=== PATIENT | female | born 1965 | race Caucasian/White ===

== ENCOUNTER → 2018-12-05 10:03 | Outpatient (CLI) | payer OTHER, SELFPAY ==
--- NOTE | 2018-12-05 10:16 | MRI_ITS ---
STUDY: BILATERAL BREAST MR WITHOUT AND WITH CONTRAST REASON FOR EXAM: Female, 53 years old. Coarse calcifications on mammogram. Positive family history of breast cancer. TECHNIQUE: Multi-sequence multi-echo imaging of both breasts was performed with a dedicated breast coil. T1-weighted and T2-weighted images were performed before the administration of contrast. T1-weighted images were also performed after the administration of 6 mL of Gadavist intravenously without complications. COMPARISON: Screening mammogram dated October 22, 2018 and right diagnostic mammogram dated October 22, 2018. FINDINGS: RIGHT BREAST: The breast tissue is heterogeneously dense with minimal background enhancement. There are no abnormal enhancing masses or areas of non-mass enhancement in the right breast. LEFT BREAST: The breast tissue is heterogeneously dense with minimal background enhancement. There are no abnormal enhancing masses or areas of non-mass enhancement in the left breast. There are no enlarged or abnormal lymph nodes. There is no abnormality in the visualized regions of the chest or liver. MRI/Breast Bilateral W/O and W IMPRESSION: No significant abnormality identified in the breast MRI without and with with contrast. CATEGORY: BIRADS Category 2: Benign. A letter regarding these results will be sent to the patient by the facility within 30 days. Electronically Signed: Dino Mohamud MD at 17:57 EST , Service support ,
== END ==
PROVIDERS: Family Provider Family Medicine; PCP Family Medicine; Referring Provider Obstetrics & Gynecology; Visit Provider Obstetrics & Gynecology
DX: R92.2 Inconclusive mammogram (principal)
CPT/HCPCS: 77049; A9585; A4216; C8908

== ENCOUNTER → 2018-12-19 11:59 | Outpatient (CLI) | payer OTHER, SELFPAY ==
[2018-12-19 14:55] LABS: Hematocrit 42.5 % (37-47); Mean Corp Hgb Conc 32.9 g/gl (32-36); Mean Platelet Vol. 10.5 fl (6.2-12.0); Platelet Count 223 K/mm3 (150-450); RBC Distribution Width CV 12.4 % (11.6-14.6); RBC Distribution Width SD 44.4 fl (35.1-43.9); Red Blood Count 4.38 M/mm3 (4.2-5.4); White Blood Count 5.8 K/mm3 (4.4-11.0)
[2018-12-19 14:59] LABS: Scan Indicated on CBC? Y/N NO
[2018-12-19 15:12] LABS: hCG Titer Quant., Serum 7 mIU/mL (<9 non-preg)
[2018-12-19 15:14] LABS: Estradiol 17.2 pg/mL; Free T3 2.4 pg/mL (2.18-3.98); Progesterone Level 0.34 ng/mL (See Comment); T4 Free Direct 1.09 ng/dL (0.76-1.46)
[2018-12-19 15:19] LABS: Hemoglobin A1c 5.3 % (4.2-6.3)
[2018-12-23 14:45] LABS: HPV Reflexed? NOT INDICATED
== END ==
PROVIDERS: Visit Provider Obstetrics & Gynecology
DX: Z12.4 Encounter for screening for malignant neoplasm of cervix (principal); N92.6 Irregular menstruation, unspecified
CPT/HCPCS: 36415; 82670; 83036; 84144; 84403; 84439; 84443; 84481; 84702; 85027; 88175; G0145

== ENCOUNTER → 2019-01-09 11:11 | Outpatient (CLI) | payer OTHER, SELFPAY ==
[2019-01-09 14:01] LABS: Follicle Stimulating Hormone 62.2 mIU/mL
== END ==
PROVIDERS: Visit Provider Obstetrics & Gynecology
DX: N93.9 Abnormal uterine and vaginal bleeding, unspecified (principal)
CPT/HCPCS: 36415; 83001

== ENCOUNTER → 2019-04-03 10:19 | Outpatient (CLI) | payer OTHER, SELFPAY ==
[2019-04-03 14:03] LABS: Estradiol 34.4 pg/mL; Follicle Stimulating Hormone 81.2 mIU/mL
[2019-04-03 14:08] LABS: Progesterone Level 1.36 ng/mL (See Comment)
== END ==
PROVIDERS: Visit Provider Obstetrics & Gynecology
DX: N92.5 Other specified irregular menstruation (principal); D25.1 Intramural leiomyoma of uterus
CPT/HCPCS: 36415; 82670; 83001; 84144

== ENCOUNTER 2019-04-29 10:49 | Day surgery (SDC) | payer OTHER, SELFPAY ==
[2019-04-29] VITALS (10 sets, daily range): BP systolic 112–146; BP diastolic 69–86; PULSE 53–68; RESP 16–18; TEMP 36.1–36.8; O2SAT 95–100; BMI 21.2
[2019-04-29 11:15] LABS: Internal QC Validated? YES +Cl - CLEAR BKGD; Pregnancy, Urine Negative Negative
[2019-04-29 11:20] LABS: Hematocrit 43.5 % (37-47); Mean Corp Hgb Conc 34.5 g/dL (32-36); Mean Corpuscular Hgb 33.8 pg (27.0-32.0); Mean Platelet Vol. 9.4 fl (6.2-12.0); Platelet Count 254 K/mm3 (150-450); RBC Distribution Width CV 12.6 % (11.6-14.6); RBC Distribution Width SD 45.3 fl (35.1-43.9); Red Blood Count 4.44 M/mm3 (4.2-5.4); White Blood Count 6.2 K/mm3 (4.4-11.0)
[2019-04-29 11:37] LABS: Prothrombin Time (Protime)PT. 13.1 SECONDS (11.7-14.9)
[2019-04-29 11:38] LABS: Partial Thromboplast Time 29.4 Seconds (24.1-36.2)
--- NOTE | 2019-04-29 12:00 | PCM.HP.OB ---
- Problem List (1) Thickened endometrium Status: Acute (2) Postmenopausal bleeding Status: Acute History Date of Admission: 04/29/19 History of this : This is a 53 year-old, G [], P [], at weeks gestational age. Allergies No Known Allergies Allergy (Verified 04/22/19 11:57) Home Medications: Home Medications Amlodipine Besylate [Norvasc] 10 mg PO DAILY 04/22/19 L.acidoph,Paracasei, B.lactis [Probiotic] 1 ea PO DAILY 04/22/19 Levothyroxine [Synthroid] 50 mcg PO DAILY 04/22/19 Smoking Status: Current every day smoker History Past Pregnancies: Past Pregnancies Delivery Date Name GA/Weeks Outcome Route Weight Infant Gender Labor Length Anesthesia Delivery Location Provider FOB Review of Systems Constitutional: Denies: Chills, Fever, Weight Change HEENT: Denies: Difficulty Hearing, Difficulty Swallowing, Nasal bleeding, Nasal Congestion, Sore Throat Cardiovascular: Denies: Chest Pain, Palpitations Respiratory: Denies: Shortness of Breath, Wheezing Gastrointestinal: Denies: Constipation, Diarrhea, Nausea, Vomiting Genitourinary: Denies: Dysuria, Frequency, Hematuria, Incontinence, Urgency Musculoskeletal: Denies: Joint Pain, Muscle pain Skin: Denies: Lesions, Skin Changes Neurological: Denies: Focal weakness, Numbness Psychiatric: Denies: Anxiety, Depression Endocrine: Denies: Heat/ Cold Intolerance Hematologic/ Lymphatic: Denies: Easy Bleeding Physical Exam Vitals: Vital Signs Temp Pulse Resp BP Pulse Ox 98.3 F 68 16 126/69 H 100 04/29/19 11:13 04/29/19 11:13 04/29/19 11:13 04/29/19 11:13 04/29/19 11:13 General: Alert, Oriented x3, No apparent distress HEENT: Atraumatic, Normocephalic. 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 The risk of bleeding, infection and other organ damage including bladder, bowel and uterine perforation reviewed, accepted and consented.
--- NOTE | 2019-04-29 12:30 | EMB_PTH ---
PATIENT: JENNIFER MALIK LOC: [facility] – [place] U#:[id number] AGE/SX: 53/F ROOM: RE04/29/[address]: Dr. Gertrude Chung MD : 1965 BED: DIS: 04/29/2019 SPEC #: [id number] RECD: 04/30/19 07:54 STATUS: MIGUELITO JADEN #: [id number] ANN: 04/29/19 12:[address]: Gertrude hCung DEPT: SURGICAL PATHOLOGY RECD BY: Kevin Redding ENTERED: 04/30/19 11:04 SP TYPE: ENDOShamika BX/C PANCHITO DR: Juany Marcos PA-C Tissues: Endometrium, NOS Procedures: Surgery Specimen Level IV HEADER OPERATION: Hysteroscopy, dilation and curettage PRE-OP DIAGNOSIS: Thickened endometrium, postmenopausal bleeding TISSUE SUBMITTED: Endometrial curettings MICROSCOPIC DIAGNOSIS Endometrial curettings: Proliferative endometrium. Fragments of benign ecto- and endocervical mucosa with chronic inflammation. SJ:juanito 05/01/19 MICROSCOPIC DESCRIPTION Slides are reviewed. GROSS DESCRIPTION Received in fixative is one container labeled with the patient's name and designated endometrial curettings. The specimen consists of multiple fragments of hemorrhagic soft tissue that in aggregate measure 3 x 2.5 x 0.3 cm. The entire specimen is submitted in one cassette. / ALEXIS:juanito 04/30/19 TC:5 CPT: 13578
--- NOTE | 2019-04-29 13:24 | PCM.OPRPT ---
Problem List (1) Thickened endometrium Status: Acute (2) Postmenopausal bleeding Status: Acute Report of Operation Date of Procedure: 04/29/19 Pre-Operative Diagnosis: Postmenopausal bleeding and thickened endometrium Post-Operative Diagnosis: Same Surgery/Procedure Performed:: D&C, hysteroscopy Description of Surgical Findings:: Uterus was sounded to approximately 9 cm in anteflexed position. Bilateral adnexal areas were benign upon pelvic exam under anesthesia Type of Anesthesia:: Local MAC Anesthesiologist: Beny Gee Special Medications: Cefotetan 2 g IV preop and 10 cc of 1% lidocaine directly to the cervix Specimen's removed: Endometrium Drains: None Estimated Blood Loss (mL): Minimal Fluids Replaced: Lactated Ringer Description of Procedure: Patient was brought to the operating room and n.p.o. status. She was placed on the operating room table and underwent a MAC anesthetic after appropriate monitoring had been placed. These note that timeout had occurred upon entry into the room as well as before procedure commenced. After appropriate anesthesia was administered patient placed in the dorsolithotomy position via the Georges stirrups. She was prepped and draped in the normal sterile fashion. Patient had straight cath of approximately 30 cc of clear urine. Weighted speculum was placed to the vaginal vault area and the anterior lip of the cervix was grasped elevated with a single-tooth tenaculum. Cc of 1% lidocaine was placed directly to the cervix and patient tolerated well. This was sounded to approximately 9 cm in anteflexed position. The the cervical os was then dilated to accommodate a 5 mm hysteroscope. A 5 mm hysteroscope was placed into the endometrial cavity the entire endometrium was examined and noted to have tissue throughout. The hysteroscope was removed and sharp curettage of the entire endometrial cavity occurred with collection of that endometrial tissue for evaluation for pathology G. The scope was placed back into the endometrial cavity and all tissue was noted to have been removed. Were then removed from the vagina. The sponge and instrument counts were correct x2. The patient was awakened in stable condition to be taken to the recovery room for discharge home later today. Grafts/Implants Used: None - Complications None - Admit VTE Documentation VTE Present on Admission: No VTE Mechan Device Prophylaxis: SCD's VTE Pharm Prophylaxis ordered?: No Reason prophylaxis not ordered:: Procedure Not Indicated
--- NOTE | 2019-04-29 13:28 | DCINST_ITS ---
Discharge Diet: No Restrictions - Increase water intake to a minimum of 100 cc/day x 3 days Discharge Activity: Return to Normal Activity, May Shower, May Take a Tub Bath - in 2 weeks. Return to work on:: 05/01/19 May shower in (days): 0 - Today May resume sexual activity in: 2 weeks Weight Bearing Status: Full weight bearing Lifting Restrictions: None Additional Activity Instructions:: Ambulate often the first week after surgery Call your doctor if your incision/area has: Sudden Increased Bleeding Call your doctor if you observe: Fever of 101 or Higher, Inability to urinate, Inability to have a bowel movement, Using more than one pad per hour Allergies/Adverse Reactions: Allergies No Known Allergies Allergy (Verified 04/22/19 11:57) Medications to take at Discharge Amlodipine Besylate [Norvasc] 10 mg PO DAILY 04/22/19 L.acidoph,Paracasei, B.lactis [Probiotic] 1 ea PO DAILY 04/22/19 Levothyroxine [Synthroid] 50 mcg PO DAILY 04/22/19 Primary Care Physician: Juany Marcos PA-C [Primary Care Provider] - Test Results: Test results from this visit will be discussed in further detail at your follow- up appointment, if applicable. Please Follow Up With: May 07
[2019-04-29] MEDS: Ketorolac 30 MG/ML Syringe IV (13:40)
== END 2019-04-29 15:20 | disposition home or self-care (01) ==
LOC: SDC 10:52 → AC 10:52
PROVIDERS: Family Provider Family Medicine; PCP Family Medicine; Referring Provider Obstetrics & Gynecology; Visit Provider Obstetrics & Gynecology
PROC: 0UDB8ZZ Extraction of Endometrium, Via Natural or Artificial Opening Endoscopic (ICD-10-PCS; CPT 58558; principal; 2019-04-29 12:20)
DX: N95.0 Postmenopausal bleeding (principal); R93.89 Abnormal findings on diagnostic imaging of other specified body structures; I10 Essential (primary) hypertension; E06.9 Thyroiditis, unspecified; F17.200 Nicotine dependence, unspecified, uncomplicated; Z98.51 Tubal ligation status; Z79.899 Other long term (current) drug therapy
CPT/HCPCS: 58558; 36415; 81025; 85027; 85610; 85730; 86850; 86900; 88305; J7120

== ENCOUNTER → 2019-09-29 13:48 | Outpatient (CLI) | payer OTHER, SELFPAY ==
[2019-04-29 11:13] VITALS: BMI 21.2
[2019-09-29 16:40] LABS: Progesterone Level 0.95 ng/mL (See Comment)
[2019-09-29 16:43] LABS: Estradiol 31.6 pg/mL
== END ==
PROVIDERS: Visit Provider Obstetrics & Gynecology
DX: N95.1 Menopausal and female climacteric states (principal)
CPT/HCPCS: 82670; 84144; 84403

== ENCOUNTER → 2020-02-25 17:27 | Outpatient (CLI) | payer OTHER, SELFPAY ==
[2019-04-29 11:13] VITALS: BMI 21.2
[2020-02-25 17:58] LABS: CRP, High Sensitivity Cardiac 2.43 mg/L; Estradiol 56.3 pg/mL
[2020-02-27 13:33] LABS: Sex Hormone-binding Globulin 82.9 nmol/L (17.3-125.0)
== END ==
PROVIDERS: Referring Provider Obstetrics & Gynecology; Visit Provider Obstetrics & Gynecology
DX: R68.82 Decreased libido (principal)
CPT/HCPCS: 82627; 82670; 84270; 84403; 86141; 82626

== ENCOUNTER → 2021-08-16 06:54 | Outpatient (CLI) | payer OTHER, SELFPAY ==
--- NOTE | 2021-08-16 07:50 | MRI_ITS ---
STUDY: BILATERAL BREAST MR WITHOUT AND WITH CONTRAST REASON FOR EXAM: Female, 55 years old. Mother with breast cancer in 60''s. Sister with breast cancer in 6th decade. Request says patient has breast cancer. TECHNIQUE: Multi-sequence multi-echo imaging of both breasts was performed with a dedicated breast coil. T1-weighted and T2-weighted images were performed before the administration of contrast. T1-weighted images were also performed after the administration of Dotarem 11mL without complications. COMPARISON: Mammograms dated 07/08/2021 and right breast ultrasound dated 07/08/2021. FINDINGS: RIGHT BREAST: The breast tissue is heterogeneously dense with minimal background enhancement. There are no abnormal enhancing masses or areas of non-mass enhancement in the right breast. LEFT BREAST: The breast tissue is heterogeneously dense with minimal background enhancement. There are no abnormal enhancing masses or areas of non-mass enhancement in the left breast. There are no enlarged or abnormal lymph nodes. There is no abnormality in the visualized regions of the chest or liver. MRI/Breast Bilateral W/O and W IMPRESSION: No abnormality on the breast MRI with contrast. CATEGORY: BIRADS Category 6: Known Biopsy-Proven Malignancy - Appropriate Action Should Be Taken. A letter regarding these results will be sent to the patient by the facility within 30 days. Electronically Signed: Dino Mohamud MD at 11:02 EST , Service support ,
[2021-08-16 08:00] LABS: CREATININE FINGERSTICK 0.6 mg/dL (0.55-1.02); EGFR FINGERSTICK > 60.0000 mL/min (>60)
== END ==
PROVIDERS: PCP Family Medicine; Referring Provider Surgery; Visit Provider Surgery
DX: C50.912 Malignant neoplasm of unspecified site of left female breast (principal); Z80.3 Family history of malignant neoplasm of breast
CPT/HCPCS: 77049; A9575; A4216; C8908

== ENCOUNTER 2021-08-24 06:35 | Day surgery (SDC) | payer OTHER, SELFPAY ==
--- NOTE | 2021-08-23 09:59 | EKG12_ITS ---
Test Reason : PRE OP Blood Pressure : / mmHG Vent. Rate : 059 BPM Atrial Rate : 059 BPM P-R Int : 156 ms QRS Dur : 066 ms QT Int : 434 ms P-R-T Axes : 061 007 038 degrees QTc Int : 429 ms Sinus bradycardia Septal infarct , age undetermined Abnormal ECG Confirmed by CALIXTO ZAMBRANO, CANDIDO ([id number]), greeting card editor MARLYN FLETCHER ([id number]) on 08/24/2021 9:36:35 AM Referred By: Del Allen Confirmed By:CANDIDO DE LUNA MD
--- NOTE | 2021-08-23 10:22 | RAD_ITS ---
STUDY: X-RAY CHEST REASON FOR EXAM: Female, 55 years old. Preop for breast cancer surgery TECHNIQUE: PA and lateral views of the chest. COMPARISON: None. FINDINGS: The lungs are clear and expanded. There is no demonstrated pleural abnormality. Normal size heart. Normal mediastinum and maritza. Normal visualized pulmonary arteries. Normal visualized aortic arch and descending thoracic aorta. Normal visualized thoracic spine. Normal visualized ribs, clavicles, and shoulders. There is no demonstrated abnormality of the visualized soft tissue structures of the upper abdomen. RAD/Chest PA and Lateral IMPRESSION: Normal x-ray examination of the chest. Electronically Signed: Shalom Owens MD at 11:54 EST , Service support ,
[2021-08-23 11:40] LABS: ALB/GLOB Ratio 1.1 RATIO (0.9-2.4); AST(SGOT) 18 U/L (15-37); Alanine Aminotransfer ALT/SGPT 22 U/L (13-56); Albumin, Serum 4.1 g/dL (3.2-5.0); Alkaline Phosphatase 81 U/L (45-117); Anion Gap 8 (5-15); BUN 10 mg/dL (7-18); BUN/Creat Ratio 14.9 RATIO (10-20); Calcium,Total 9.3 mg/dL (8.5-10.1); Chloride 103 mmol/L (98-107); Creatinine, Serum 0.67 mg/dL (0.55-1.02); EST Glomerular Filtration Rate 97 mL/min (>60); Est Glom Filt Rate - Afr Amer 117 mL/min (>60); Globulin 3.7 g/dL (2.2-4.2); Glucose 97 mg/dL (74-106); Potassium 4.2 mmol/L (3.5-5.1); Protein, Total 7.8 g/dL (6.4-8.2); Sodium Level 138 mmol/L (136-145)
[2021-08-24] VITALS (8 sets, daily range): BP systolic 107–130; BP diastolic 62–78; PULSE 61–79; RESP 14–16; TEMP 36.4–36.8; O2SAT 94–100
--- NOTE | 2021-08-24 | BRBX_PTH ---
PATIENT: JENNIFER MALIK LOC: [facility] [place] U#:[id number] AGE/SX: 55/F ROOM: RE08/24/[address]: Dr. Del Allen MD : 1965 BED: DIS: 08/24/2021 SPEC #: [id number] RECD: 08/24/21 10:18 STATUS: MIGUELITO REIva #: [id number] ANN: 08/24/21 00:[address]: Del Allen DEPT: SURGICAL PATHOLOGY RECD BY: Kathy Marc ENTERED: 08/24/21 11:14 SP TYPE: BREAST BX OTHR DR: Juany Marcos PA-C Tissues: A - Left breast, NOS B - Axillary lymph node, NOS Procedures: Frozen Section (charge) Frozen Section Add'l ([facility]) Surgery Specimen Level V HEADER OPERATION: Breast, stereotactic wire localized lumpectomy PRE-OP DIAGNOSIS: Left breast cancer, axillary adenopathy, breast cyst TISSUE SUBMITTED: A ? Left breast mass, B ? Left axillary sentinel lymph nodes/enlarged lymph nodes, frozen section FROZEN SECTION DIAGNOSIS B. Left axillary sentinel lymph nodes, biopsy: Three out of three lymph nodes, negative for metastatic carcinoma. SJ:juanito 08/24/2021 MICROSCOPIC DIAGNOSIS A. Left breast, lumpectomy: Invasive ductal carcinoma. See cancer checklist below. B. Left axillary sentinel lymph nodes, biopsy: Three out of three lymph nodes, negative for carcinoma. See comment. AM:juanito 08/26/2021 COMMENT INVASIVE BREAST CANCER SUMMARY: Procedure ? excision with wire guidance Specimen type ? partial breast Size ? 4.5 x 3.5 x 1.5 cm Laterality ? left breast Tumor size ? 1 x 1 x 0.8 cm Site ? not specified Histologic type ? invasive ductal carcinoma Focality ? single focus of carcinoma. Histologic Grade (Lurdes grade): Glandular/tubular differentiation - score 3 Nuclear pleomorphism - score 2 Mitotic count ? 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 2% Number of blocks ? 2 of 9 blocks Architectural pattern ? cribriform Nuclear grade - 2 Necrosis ? not present Lobular carcinoma in situ ? not present Tumor extension: Skin - No skin present Nipple - No nipple present Skeletal muscle - No skeletal present. Margins: Distance of invasive carcinoma from closest margin ? 4 mm from anterior margin. Distance of in situ carcinoma from closest margin - 4 mm from anterior margin. Lymph Nodes: Number of sentinel lymph nodes examined - 3 Total number of lymph nodes examined - 3 No evidence of macrometastases, micrometastases or isolated tumor cells. See specimen ?B.? Microcalcifications: Present in non-neoplastic tissue and ductal carcinoma in situ. Treatment Effect: Unknown Lymphvascular invasion ? not identified Additional Pathologic Findings ? fibrocystic change, adenosis and associated microcalcifications. Ancillary Studies: ([id number]) ER: >95%, strong intensity WA: 75%, Moderate to strong intensity Lfi8mps: 0 (Negative). Clinical History ? Mass of left breast. PATHOLOGIC STAGE: T1b N0(sn) Mx The above summary is in compliance with [employer] of [place] [employer] (CAP) Cancer Protocols Checklist and [place] Joint Committee on Cancer (AJCC), Staging Manual, 8th Ed. A & B. Immunohistochemistry ([id number]) supports the above diagnosis. MICROSCOPIC DESCRIPTION Slides are reviewed. GROSS DESCRIPTION A - Received fresh for intraoperative consultation labeled with the patient's name is a specimen designated left breast mass. The specimen consists of a piece of fibroadipose tissue with needle localization measuring 4.5 x 3.5 x 1.5 cm. The specimen is oriented as follows: wire - anterior, short suture - superior, long suture - lateral. The specimen is inked as follows: anterior - yellow, posterior - black, superior - blue, inferior - green, medial - red and lateral - orange. Serial sections reveal a sparks, indurated nodule measuring 1 x 1 x 0.8 cm. This nodule is 0.4 cm away from the closest anterior margin. This information is conveyed to the surgeon intraoperatively. Sections of the rest of the specimen reveal sparks-yellow adipose cut surfaces with scant fibrous area. The entire specimen is submitted in nine cassettes from lateral margin to medial margin. Cassette 1 contains the most lateral portion of the specimen and cassette 9 contains the most medial portion of the specimen. B - Received fresh for frozen section diagnosis labeled with the patient's name is a specimen designated left axillary sentinel lymph nodes. The specimen consists of a piece of adipose tissue with wire localization measuring 4.5 x 3.5 x 1 cm. Three lymph nodes are identified measuring 0.5 to 1.5 cm in greatest dimension. The lymph nodes are submitted in entirety for frozen section diagnosis as follows: 1?? one bisected lymph node, 2 - one lymph node, 3 - one bisected lymph node, largest lymph node. / SJ:rg 08/24/21 TC:0 CPT: 37505 x2, 68739, 86180, 86584 x2
--- NOTE | 2021-08-24 | IMM_PTH ---
PATIENT: JENNIFER MALIK [place] [facility] [place][id number] AGE/SX: 55/F ROOM: RE08/24/[address]: Dr. Del Allen MD : 1965 BED: DIS: 08/24/2021 SPEC #: [id number] RECD: 08/26/21 13:40 STATUS: MIGUELITO REQ #: [id number] ANN: 08/24/21 00:[address]: Del Allen DEPT: IMMUNOHISTOCHEMISTRY RECD BY: Kathy Marc ENTERED: 08/26/21 13:42 SP TYPE: IMMUNO OTHR DR: Juany Marcos PA-C Tissues: A - Left breast, NOS B - Axillary lymph node, NOS Procedures: CALPONIN-1 (add) CK5-6 (add) CK7 (add) CK8 (add) MENDIOLA-2 (add) E-CAD (add) HER2 NAEEM (add) KI-67 (add) P53 (add) PA (add) Pankeratin (add) P40 (add) ER (initial) CK7 (initial) PHYSICIAN & [address] [address] SPECIMEN INFORMATION: Tissue Source: A ? Left breast mass, B ? Left axillary sentinel lymph nodes Clinical Info: Left breast cancer, axillary adenopathy, breast cyst Specimen Number: [id number] A3, B1-B3 CPT code: 10021 x2, 64546 x12, 47877 x3 METHODOLOGY: Deparaffinized sections of prefer/formalin-fixed tissue or PAP/DQ stained slides are incubated with monoclonal/polyclonal antibodies/oligonucleotide probes. Localization is made via biotin free immunoperoxidase method. Appropriate controls are performed and reacted as expected. Results on target cell population are indicated in the following table: RESULTS: ANTIBODY / CLONE RESULT Block A3 P53 (DO-7) positive, 45%, dim Ki-67 (30-9) positive, 50% CK8 ([id number]) positive CK5-6 (D5 & 1684) negative Calponin-1 (RW097R) negative P40 (BC28) negative E-Cad (ECH-6) positive MENDIOLA-2 (SP21) positive MORPHOMETRIC ANALYSIS ER (clone 6F11) >95%, strong intensity PA (clone 16/1E2) 75%, moderate to strong intensity Her-2Neu (clone CB11) 0 Block B1 CK7 (OV-TL12/30) negative AE1-3 (AE1/AE3/PCK26) negative Block B2 CK7 (OV-TL12/30) negative AE1-3 (AE1/AE3/PCK26) negative Block B3 CK7 (OV-TL12/30) negative AE1-3 (AE1/AE3/PCK26) negative The prognostic test for HER2 is performed on formalin-fixed paraffin embedded tissue. A 3+ (positive) staining pattern is defined as intense, homogeneous, complete, circumferential membranous staining in >10% of contiguous tumor cells. A similar weak (2+) staining pattern is interpreted as equivocal. HORACE follow-up testing is recommended for all equivocal cases. Positivity/negativity for ER/PA is reported if > or < 1% of the tumor cells are immuno- reactive, respectively. The ASCO/CAP criteria is used for scoring. Reference: Journal of Clinical Oncology, 2013; 31:4582-8673 & 2010; 16:2808-0246. Duration of fixation: 9.5 Hrs; Sample Adequate: Yes. These assays have not been validated on decalcified tissues. Results should be interpreted with caution given the likelihood of false negativity on decalcified specimens. These tests were developed and their performance characteristics determined by [facility]. They may not have been cleared or approved by the U.S. Food and Drug Administration. The FDA has determined that such clearance or approval is not necessary. The above immunohistochemical/dualISH markers are ordered and reviewed by the Pathologist. INTERPRETATION: A. Left breast mass, lumpectomy: Invasive ductal carcinoma. Positive for estrogen receptors (favorable prognostic indicator). Positive for progesterone receptors (favorable prognostic indicator). Negative for overexpression of [id number]. B. Left axillary sentinel lymph nodes, biopsy: Three out of three lymph nodes, negative for carcinoma. AM:juanito 08/29/2021
--- NOTE | 2021-08-24 07:08 | HP.PCM_ITS ---
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 lactis 1 ea PO DAILY 04/22/19 [History Confirmed 1 10/08/20] amlodipine 10 mg PO DAILY 04/22/19 [History Confirmed 08/08/21] levothyroxine 50 mcg PO DAILY 04/22/19 [History Confirmed 08/08/21] valacyclovir 1 gram tablet 1,000 mg PO .prn tab 08/08/21 [History Confirmed 08/08/21] PFSH Medical History (Updated 08/08/21 @ 15:[address] Del Allen MD) Breast cancer, left HTN (hypertension) Hypothyroidism Surgical History (Updated 08/08/21 @ 07:47 by Elsy Kee) S/P ACL repair S/P tubal ligation Family History (Updated 08/08/21 @ 07:47 by Elsy Kee) Mother Breast cancer Cancer skin Thyroid disorder Social History (Updated 08/08/21 @ 07:48 by Elsy Kee) Smoking Status: Former smoker quit date: 08/04/21 alcohol intake: current alcohol intake frequency: 3 or more drinks per day HPI HPI HPI: JENNIFER MALIK, is a 55 F who presents to the office today for surgical consultation regarding left breast cancer. The patient is referred by Dr. Jenni Ventura and a written copy of my surgical consult recommendations will return to her. At [facility] the patient had bilateral screening mammograms January 21, 2021 with diagnostic left mammogram January 21, 2021. I do not have access to those films. July 08, 2021 she had 6-month follow-up left breast. In the MLO view superior breast posterior depth she had a 9 x 8 mm suspicious density. Bilateral breast ultrasound was performed. On ultrasound left breast 2 o'clock position 1 x 0.8 x 1.2 cm suspicious lesion. Also in the left axilla a 1.05 x 1.26 cm lymph node. It is of note that on ultrasound in the right breast 3 o'clock position there was felt to be a solid cystic lesion at 3 o'clock position measuring 0.54 x 1.09 cm. This has not been sampled. On July 27, 2021 she underwent a core biopsy of the left breast mass at the 2 o'clock position under ultrasound guidance. Pathology demonstrates invasive ductal carcinoma. ER 90%. TN 90%. HER-2/seema negative a fine needle aspiration was performed of the left axillary lymph node and that demonstrated blood in lymphoid cells. A core biopsy was not performed of the left axillary lymph node and there was no biopsy performed of the right breast 3:00 lesion 55-year-old female. G1, . Menarche age 11. First child was born when she was 22. She did breast-feed. Prior to her current work she had not had any previous breast biopsies. March 2021 she had hormone replacement pellets inserted into her left buttock area. Her mother had breast cancer initially in her 50s and then recurrence or new lesion later in life. The patient has been a chronic cigarette smoker. She quit 1 week ago. The patient states that 6 months ago something showed up on the left mammogram that they were following up for. She states that she pointed it out to them that she could palpate a left breast mass and that is what sherrill attention currently. She states that what they thought they saw previously was unchanged. This is not clear to me in their description or imaging. August 16, 2021 TUDY: BILATERAL BREAST MR WITHOUT AND WITH CONTRAST REASON FOR EXAM: Female, 55 years old. Mother with breast cancer in 60''s. Sister with breast cancer in 6th decade. Request says patient has breast cancer. TECHNIQUE: Multi-sequence multi-echo imaging of both breasts was performed with a dedicated breast coil. T1-weighted and T2-weighted images were performed before the administration of contrast. T1-weighted images were also performed after the administration of Dotarem 11mL without complications. COMPARISON: Mammograms dated 07/08/2021 and right breast ultrasound dated 07/08/2021. FINDINGS: RIGHT BREAST: The breast tissue is heterogeneously dense with minimal background enhancement. There are no abnormal enhancing masses or areas of non-mass enhancement in the right breast. LEFT BREAST: The breast tissue is heterogeneously dense with minimal background enhancement. There are no abnormal enhancing masses or areas of non-mass enhancement in the left breast. There are no enlarged or abnormal lymph nodes. There is no abnormality in the visualized regions of the chest or liver. MRI/Breast Bilateral W/O and W IMPRESSION: No abnormality on the breast MRI with contrast. CATEGORY: BIRADS Category 6: Known Biopsy-Proven Malignancy - Appropriate Action Should Be Taken. A letter regarding these results will be sent to the patient by the facility within 30 days. Electronically Signed: Dino Mohamud MD at 11:02 EST , Service support , ROS General General: Yes breast cancer; No weight change, appetite, fatigue, colon cancer or weakness HEENT HEENT: No difficulty swallowing, eye injury, eye surgery, swollen glands or hoarseness Endo Endocrine: Yes thyroid disease; No diabetes mellitus, thyroid cancer, Hair loss, heat intolerance or cold intolerance Skin Skin: No rash or changing moles Breast Breast: No left breast lump, right breast lump, nipple discharge, breast pain, abnormal mammogram, abnormal US or breast enlargement Musc Musculoskeletal: No back problems, arthritis, rheumatoid arthritis, gout or joint pain Cardio Cardiovascular: Yes high blood pressure; No murmur, pacemaker, heart disease, atrial fibrillation, heart attack, heart stent, palpitations, shortness of breat with exertion or chest pain Psych Psychiatric: No depression, anxiety or hearing voices Resp Respiratory: No shortness of breath, No sleep apnea, No cough, No COPD, No asthma, No emphysema and No wheezing Gastro Gastrointestinal: No abdominal pain, No nausea or vomiting, No diarrhea, No constipation, No blood in stool, No acid reflux, No hemorrhoids, No ulcers, No gallbladder problem and No black,tarry stools Ghassan Hematologic: No blood thinners, No blood disorders, No bleeding, No anemia and No blood clots Neuro Neurologic: No system reviewed and no additional complaints, except as documented, No as per HPI, No abnormal gait, No abnormal hearing, No abnormal movements, No abnormal speech, No behavioral changes, No burning sensations, No confusion, No convulsions, No disequilibrium, No dizziness, No localized weakness, No frequent falls, No headache(s), No lack of coordination, No loss of vision, No memory loss, No numbness, No other visual disturbances, No radicular pain, No restless legs, No sensory deficit, No syncope, No tingling, No tremor(s), No weakness and No other Exam Const General: cooperative and healthy appearing [facility] Head: normal to inspection Eyes General: appearance normal, both eyes and all related structures Neck Neck: normal visual inspection Chest Other: Right breast: No focal mass no nipple discharge no axillary clavicular adenopathy Left breast tenderness with ecchymosis upper inner quadrant left breast adjacent to the areola. Tender. Palpable left low axillary lymph node with bruising tenderness Resp Effort & Inspection: normal respiratory effort Auscultation: clear to auscultation bilaterally Cardio Rate: regular rate Rhythm: regular rhythm GI Palpation: soft and no hepatosplenomegaly Auscultation: normal bowel sounds Musc Cervical Spine: normal cervical lordosis Skin General: no rashes or lesions noted Neuro General: patient alert, patient awake and patient oriented x3 Extrem General: no calf tenderness Psych Mood: anxious mood Office Procedures Biopsy Provider Documentation Ultrasound-guided fine needle aspiration right medial breast 3:00 periareolar position and right medial breast 3 o'clock position +6 cm Timeout informed consent was obtained the patient was taken to the procedure room placed on the table right breast was prepped with Betadine I performed ultrasound of the right breast 6 cm 3 o'clock position I found a small 5 mm diameter cyst. I instilled 1% lidocaine mixed 50-50 with 0.5% Marcaine and used a 22-gauge needle and was able to aspirate completely resolved that small cystic lesion. Upon further inspection I was able to identify the larger 1 cm diameter nodule at approximately the right breast 3 o'clock position periareolar. This had significant mount of internal echoes. Again using ultrasound-guided and 1% lidocaine mixed 50-50 with 0.5% Marcaine a total throughout the procedure with 5 cc was used. I placed a 20-gauge needle into this lesion was able to aspirate some dark almost purulent type material. I was able to get almost complete decompression of the lesion. This had the appearance of simply a cyst that had hemorrhaged into itself. There were no findings that would suggest malignancy. Dressings were applied she was given activity wound care instructions. Del Allen M.D., F.A.C.S. Biopsy Breast Biopsy: [id number] US Guidance Procedure Time Out Time Out Informed consent given: Yes Consent signed: Yes Time out checklist: patient, procedure, site marked/identified, positioning of patient, supplies available, allergies confirmed and team agrees on procedure Time out staff in room: Yes Time out verified: Yes Time out date: 08/08/21 Time out time: 08:20 COVID (Procedure Consent) Procedure Criteria Procedure Criteria: Yes Elective The surgeon/proceduralist and patient have discussed in detail the risk of exposure to and/or potential harm posed by the COVID-19 virus with having a surgery/procedure at this time versus the risk of delaying the surgery/procedure. It is not possible to know either the risk of delaying the surgery or procedure or chance of getting an infection with perfect accuracy, but a joint decision was made between the patient and the surgeon/proceduralist to proceed at this time with the scheduled surgery/procedure as indicated on the consent form. Assessment and Plan Assessment and Plan (1) Breast cancer, left: Status: Acute (2) Axillary adenopathy: Status: Acute (3) Breast cyst: Status: Acute Orders: Orders: Breast Bilateral W/O and W Today C50.912 Plan - Dr. Del Allen MD: Regarding the ultrasound imaging findings right breast demonstrating 1 cm diameter possibly cystic possibly solid nodule I was able to use ultrasound and do an aspiration with resolution of this area consistent with a cyst with some more blood. No findings of malignancy. On clinical examination she has tenderness noted upper quadrant left breast with some ecchymosis. She also has additional ecchymosis at the enlarged lymph node site in the left axilla. The patient states that she was being followed for lesion and that is why she got 6-month follow-up left-sided mammogram. She states however she brought it to their attention that she was able to palpate this mass upper outer quadrant left breast. It is not clear as to whether the item that was being followed up on actually represents the item that she could palpate and has been biopsied. For that reason I recommend that we obtain bilateral breast MRI. If the MRI is not remarkable then I propose for the patient breast conservation surgery left breast. We discussed nuclear tracer and blue dye and we discussed stereotactic wire localization upper outer quadrant left breast 2 o'clock position periareolar. I would then likely during the procedure also do ultrasound-guided wire localization of the enlarged left axillary lymph node. This would be followed by a left axillary blue dye nuclear tracer sentinel lymph node biopsy with possible conversion to an axillary dissection if indicated. We will proceed with a stereotactic wire localized upper outer quadrant left breast lumpectomy. She is aware that post radiation therapy will be required. She has been given written and descriptive information. She is aware that medical oncology and radiation oncology will be participating in her care as well. She has had an opportunity to ask and have questions answered. She is relieved that the right breast findings now appear benign. We will anticipate scheduling an operative date. I appreciate the opportunity of assisting with her surgical care. I did inquire whether the patient feels that she is experience COVID-19 and she states she did not think so. She has not been vaccinated and she declines the vaccine. Copy: Juany Marcos PA-C and Dr. Jenni Allen M.D., F.A.C.S. The MRI does not demonstrate any additional findings. Anticipate nuclear tracer and blue dye left axillary sentinel lymph node biopsy with separate ultrasound- guided wire localization of the enlarged left axillary lymph node. Stereotactic wire localization upper inner quadrant left breast mass with wire localized left breast lumpectomy. We will proceed as noted. Del Allen M.D., F.A.C.S.
--- NOTE | 2021-08-24 07:10 | DCINST_ITS ---
Discharge Instructions Procedure Breast Surgery Diet Discharge Diet: No restrictions Activity Discharge Activity: May Not Drive (for 2-3 days or while taking narcotic pain meds.) May shower in (days): 1 Lifting Restrictions: 10 pounds for 1 week. Dressing / Incision Call your doctor if your incision/area has: Continuous Slow Oozing and Sudden Increased Bleeding Call your doctor if you observe: Fever of 101 or Higher Suture Line Care: Avoid Pulling/Pushing and Avoid Pinching/Bending Remove Dressing in: 1 day Additional Dressing/Incision Instructions:: Remove bulky dressing tomorrow. May leave any opsite dressing for 3-4 days. Keep dressing in place until your follow-up appointment. Follow Up Care Test Results: Test results from this visit will be discussed in further detail at your follow-up appointment, if applicable. Discharge Plan Admission Attending Provider: Del Allen Primary Care Provider: Juany Marcos Discharge Orders/Prescriptions Prescriptions: No Action valacyclovir 1 gram tablet 1,000 mg PO .prn RF: 0 amlodipine 10 MG tablet 10 mg PO DAILY RF: 0 levothyroxine 50 MCG tablet 50 mcg PO DAILY RF: 0 L.acidoph, paracasei,B. lactis 1 EACH capsule 1 ea PO DAILY RF: 0 Vitamin C 1,000 mg Capsule, Extended Release 1 cap PO DAILY RF: 0 Vitamin B-12 25 mcg Tablet 50 mcg PO DAILY RF: 0 [place] 3 Capsule 1,000 mg PO DAILY RF: 0 zinc 50 mg Capsule 50 mg PO DAILY RF: 0 cholecalciferol (vitamin D3) [Vitamin D3] 50 mcg (2,000 unit) Capsule 50 mcg PO DAILY RF: 0 testosterone 100 mg Pellet 100 mg SUBCUT DAILY RF: 0
--- NOTE | 2021-08-24 07:21 | BI_ITS ---
SURGICAL BREAST SPECIMEN RADIOGRAPH CLINICAL: Document presence of tissue clip marker in biopsy specimen. FINDINGS: Specimen shows presence of tissue clip marker. Electronically Signed: Ar Champagne MD at 12:25 EST , Service support , BI/Breast Biopsy Specimen
[2021-08-24] MEDS: Lactated Ringers 1,000 ML 15 ML IV (07:37)
--- NOTE | 2021-08-24 08:00 | NM_ITS ---
PROCEDURE: NUCLEAR MEDICINE Injection Bristol Node - LEFT breast(s). REASON FOR EXAM: Female, 55 years old. Left breast cancer. TECHNIQUE: Bristol node localization using radionuclide methods of the LEFT breast(s) was performed following subcutaneous administration of 1.1 mCi of of sulfur colloid Tc-99m. FINDINGS: 1.1 mCi of technetium labeled sulfur colloid was injected subcutaneously in 4 equal aliquots along the lateral periareolar region of the left breast. NM/Lymph Node Injection Only IMPRESSION: Subcutaneous injection of 1.1 mCi a thin sliver sulfur colloid along the lateral perivalvular region of the left breast for sentinel node imaging. The patient tolerated the procedure well. Electronically Signed: Ar Champagne MD at 8:30 EST , Service support ,
--- NOTE | 2021-08-24 09:02 | PCM.OPRPT ---
Problems Associated Problem List Diagnoses (1) Breast cancer, left: Report of Operation Date of Procedure: 08/24/21 Pre-Operative Diagnosis: Upper outer quadrant left breast invasive ductal carcinoma Post-Operative Diagnosis: Same Surgery/Procedure Performed:: Stereotactic wire localization upper outer quadrant left breast carcinoma. Wire localized left breast lumpectomy. Ultrasound-guided wire localization left axillary lymph node. Nuclear tracer and blue dye left axillary sentinel lymph node biopsy Description of Surgical Findings:: Timeout informed consent was obtained. The patient was taken to the mammography suite. She was placed prone on the table and the left breast was placed in a lateral medial view. The previous marking clip in question was rapidly identified. Stereotactic images were obtained. Digital information was obtained on a single target site. The breast was prepped with Betadine. 1% lidocaine 1/2 cc was utilized. Then the Kopan's needle was advanced to depth +15 mm. The wire was displaced. On fast view demonstrated excellent localization. Sterile dressings were applied. The patient was taken back to her room and then subsequent to the operating room for definitive surgery. Timeout and informed consent again obtained. She was placed supine on the operating table. She underwent general anesthesia. The left arm was Carefully wrapped with soft roll and placed right angles to the table. The left periareolar breast was prepped with alcohol. 2 cc of isosulfan blue dye was injected and massaged for 3 minutes. Then the left breast and axilla were sterilely prepped and draped. Ultrasound was performed of the left axilla. The previously enlarged lymph node was investigated. Under ultrasound guidance Kopan's needle was advanced into the lymph node and the wire was displaced. It became very apparent that the breast tumor was quite high upper outer quadrant left breast right at the edge of the pectoralis major muscle and somewhat a G7 to the lymph nodes. So I made one single incision oblique in the upper outer quadrant left axillary area. Because of the tumors superficial nature soon as I cut the skin I started my dissection laterally and completely excised around the tumor. A short suture was placed superior and a long suture laterally the wire exited anteriorly. Pathology received the specimen and suggested the anterior margin was 4 mm. I felt that I had adequate resection. 4 hemoclips were placed to fred the resection site. Then based upon nuclear tracer and blue dye tracking and in addition the wire localized lymph node identified lymph nodes that that would literally adjacent to the tumor in the left axilla using electrocautery dissected these free hemostasis was obtained with hemoclips. 3 lymph nodes were removed. I could not palpate or visualize any remaining lymph nodes. There was no additional blue dye tracking. The neoprobe did not seem to identify any residual elevated areas of counts. In particular one of the removed lymph nodes however had a very high count. Was happy with the resection the wound area was irrigated with water. Then I approximated the open space with some pleating sutures of 3-0 Vicryl. Closed the subcutaneous tissues with 3-0 Vicryl as well. The skin edges were approximated running septic or 4 Monocryl. Steri-Strips Telfa OpSite dressings applied followed by bulky dry pressure dressing. Incisional area had been anesthetized with 20 cc of 0.5% Marcaine as well. Sponge and instrument and needle counts were reported to the surgeon. Specimen left upper outer quadrant left breast mass and left axillary sentinel lymph nodes. Drains none. Blood loss minimal. The patient was taken to recovery area in satisfactory addition without current complication Del Allen M.D., F.A.C.S. Surgeon: Del Allen Type of Anesthesia: General and Local Anesthesiologist: Del Alvarez
[2021-08-24] MEDS: Cefazolin 2 GM in 0.9% Normal Saline 100 ML IV (09:40)
[2021-08-24] MEDS: Isosulfan Blue 1% 5 ML Vial (09:50)
[2021-08-24] MEDS: Bupivacaine Mpf 0.5% 30 ML VIAL (10:13)
[2021-08-24] MEDS: HYDROcodone Bitartrate/Apap 5/325 Tablet PO (13:13)
== END 2021-08-24 15:00 | disposition home or self-care (01) ==
LOC: SDC 06:39 → AC 06:40
PROVIDERS: PCP Family Medicine; Referring Provider Surgery; Visit Provider Surgery
PROC: (CPT 19301; principal; 2021-08-24 09:45)
DX: C50.412 Malignant neoplasm of upper-outer quadrant of left female breast (principal); Z17.0 Estrogen receptor positive status [ER+]; R59.0 Localized enlarged lymph nodes; N60.01 Solitary cyst of right breast; I10 Essential (primary) hypertension; E03.9 Hypothyroidism, unspecified; Z79.899 Other long term (current) drug therapy; Z87.891 Personal history of nicotine dependence; Z20.822 Contact with and (suspected) exposure to COVID-19; Z80.3 Family history of malignant neoplasm of breast
CPT/HCPCS: 19301; 38500; 19281; 36415; 38792; 71046; 76098; 80053; 87426; 88305; 88307; 88331; 88332; 88341; 88342; 93005; A9541; C9803; J7120; J2405; Q9968

== ENCOUNTER → 2021-09-29 08:16 | Outpatient (CLI) | payer OTHER, SELFPAY ==
--- NOTE | 2021-09-29 08:20 | BD_ITS ---
STUDY: DUAL ENERGY X-RAY ABSORPTIOMETRY / DXA REASON FOR EXAM: Female, 55 years old. Post menopausal TECHNIQUE: Bone Mineral Density (BMD) measurements of lumbar spine and bilateral hips were obtained. COMPARISON: None. FINDINGS: Lumbar Spine (L1-L4): g/cm2 (0.980) / T-score (-0.6) / Z-score (0.5) Findings are suggestive of normal bone density with a low fracture risk. Left Femur Total: g/cm2 (0.840) / T-score (-0.8) / Z-score (-0.1) Left Femoral Neck: g/cm2 (0.712) / T-score (-1.2) / Z-score (-0.1) Right Femur Total: g/cm2 (0.770) / T-score (-1.4) / Z-score (-0.7) Right Femoral Neck: g/cm2 (0.711) / T-score (-1.2) / Z-score (-0.1) BD/Dexa Bone Density Study IMPRESSION: The patient is considered osteopenic as outlined below according to World [place] Organization (WHO) criteria with a moderate fracture risk. Reference Information: The T-score is the number of standard deviations above or below the standard which is normal for young adults at their peak bone mineral density. The World Health Organization (WHO) interprets the T-scores as follows: Above -1 Normal bone density Between -1 and -2.5 Osteopenia Equal to / or below -2.5 Osteoporosis As a practical clinical guideline, osteopenia may be graded as follows: Mild -1 through -1.5 Moderate -1.6 through -2.0 Severe -2.1 through -2.4 The Z-score is the number of standard deviations above or below age-matched controls. A Z-score of less than -1.5 would be considered abnormal. References: 1. NIH Osteoporosis and Related Bone Diseases www osteo.org 2. International Society for Clinical Densitometry www iscd.org 3. National Osteoporosis Foundation www nof.org Electronically Signed: Ar Champagne MD at 11:08 EST , Service support ,
== END ==
PROVIDERS: PCP Family Medicine; Referring Provider Internal Medicine Medical Oncology; Visit Provider Internal Medicine Medical Oncology
DX: Z13.820 Encounter for screening for osteoporosis (principal); Z78.0 Asymptomatic menopausal state
CPT/HCPCS: 77080

== ENCOUNTER → 2022-02-07 | Outpatient (CLI) | payer OTHER, SELFPAY ==
--- NOTE | 2022-02-07 10:01 | BI_ITS ---
MAMMOGRAPHY - BILATERAL SCREENING REASON FOR EXAM: Female, 56 years old. Routine annual screening examination. PERTINENT HISTORY: Personal history of breast cancer. Prior left lumpectomy and left axillary node dissection. Mother with breast cancer. TECHNIQUE: Digital bilateral breast amparo (3D mammographic acquisition) in the CC and MLO projections. 2-D mediolateral oblique (MLO) and craniocaudad (CC) views of both breasts were obtained. CAD: Full Field Digital Mammography with Computer Added Detection was performed. COMPARISON: None. FINDINGS: Breast Composition: The breasts are heterogeneously dense, which may obscure small masses. There are no dominant masses or suspicious calcifications. Surgical clips are seen in the left axillary region. No other significant abnormalities are identified. BI/SCRN MAMM (CAD)W/AMPARO BILAT IMPRESSION: Stable bilateral screening mammogram. Yearly follow-up mammogram recommended. (A) ASSESSMENT CATEGORY: BIRADS Category 2: Benign. A letter regarding these results will be sent to the patient by the facility within 30 days. Approximately 10% of breast cancers are not detected by mammography. A normal mammogram should not delay biopsy of a clinically suspicious abnormality. [id number] Electronically Signed: Ar Champagne MD at 11:53 EDT ,
== END | disposition home or self-care (01) ==
LOC: OPBI 10:01
PROVIDERS: PCP Family Medicine; Referring Provider Surgery; Visit Provider Surgery
DX: Z12.31 Encounter for screening mammogram for malignant neoplasm of breast (principal); Z85.3 Personal history of malignant neoplasm of breast; Z80.3 Family history of malignant neoplasm of breast
CPT/HCPCS: 77063; 77067

== ENCOUNTER → 2022-03-31 | Outpatient (CLI) | payer OTHER, SELFPAY ==
[2022-04-05 13:19] LABS: HPV APTIMA, High Risk Negative (Negative)
== END | disposition home or self-care (01) ==
LOC: LABSPEC 12:01
PROVIDERS: PCP Family Medicine; Visit Provider Student in an Organized Health Care Education/Training Program
DX: Z12.4 Encounter for screening for malignant neoplasm of cervix (principal)
CPT/HCPCS: 87624; 88175; G0145

== ENCOUNTER → 2023-02-13 | Outpatient (CLI) | payer OTHER, SELFPAY ==
--- NOTE | 2023-02-13 10:26 | BI_ITS ---
MAMMOGRAPHY - BILATERAL SCREENING REASON FOR EXAM: Female, 57 years old. Routine annual screening examination. PERTINENT HISTORY: Personal history of breast cancer. Prior left lumpectomy with radiation treatment. Mother with breast cancer. TECHNIQUE: Digital bilateral breast amparo (3D mammographic acquisition) in the CC and MLO projections. 2-D mediolateral oblique (MLO) and craniocaudad (CC) views of both breasts were obtained. CAD: Full Field Digital Mammography with Computer Added Detection was performed. COMPARISON: Comparison is made with prior study of February 07, 2022 and August 24, 2021. FINDINGS: Breast Composition: The breasts are extremely dense, which lowers the sensitivity of mammography. There are no dominant masses or suspicious calcifications. Surgical clips are seen in the left axillary region. No other significant abnormalities are identified. There has been no significant change since the prior study. BI/SCRN MAMM (CAD)W/AMPARO BILAT IMPRESSION: Stable bilateral screening mammogram. Yearly follow-up mammogram recommended. (A) ASSESSMENT CATEGORY: BIRADS Category 2: Benign. A letter regarding these results will be sent to the patient by the facility within 30 days. Approximately 10% of breast cancers are not detected by mammography. A normal mammogram should not delay biopsy of a clinically suspicious abnormality. [id number] Electronically Signed: Ar Champagne MD at 11:10 EDT ,
== END | disposition home or self-care (01) ==
LOC: OPBI 10:25
PROVIDERS: PCP Family Medicine; Referring Provider Student in an Organized Health Care Education/Training Program; Visit Provider Student in an Organized Health Care Education/Training Program
DX: Z12.31 Encounter for screening mammogram for malignant neoplasm of breast (principal); Z85.3 Personal history of malignant neoplasm of breast; Z80.3 Family history of malignant neoplasm of breast
CPT/HCPCS: 77063; 77067

== ENCOUNTER → 2023-10-02 | Outpatient (CLI) | payer OTHER, SELFPAY ==
--- NOTE | 2023-10-02 10:55 | BD_ITS ---
STUDY: DUAL ENERGY X-RAY ABSORPTIOMETRY / DXA REASON FOR EXAM: Female, 57 years old. Screening for osteoporosis TECHNIQUE: Bone Mineral Density (BMD) measurements of lumbar spine and bilateral hips were obtained. COMPARISON: Comparison is made with prior study September 29, 2021. FINDINGS: Lumbar Spine (L1-L4): g/cm2 (0.979) / T-score (-0.6) / Z-score (0.6) Findings are suggestive of normal bone density with a low fracture risk. Left Femur Total: g/cm2 (0.775) / T-score (-1.4) / Z-score (-0.5) Left Femoral Neck: g/cm2 (0.740) / T-score (-1.0) / Z-score (0.2) Right Femur Total: g/cm2 (0.740) / T-score (-1.7) / Z-score (-0.8) Right Femoral Neck: g/cm2 (0.702) / T-score (-1.3) / Z-score (-0.1) The T-Scores on the most recent prior examination were: Lumbar Spine (L1-L4): There has been no change of bone density since the previous examination. Left Femur Total: which represents a worsening of 7.7%. Right Femur Total: which represents a worsening of 3.9%. BD/Dexa Bone Density Study IMPRESSION: The patient is considered osteopenic as outlined below according to World [place] Organization (WHO) criteria with a moderate fracture risk. There has been worsening of bone density since the previous examination. Reference Information: The T-score is the number of standard deviations above or below the standard which is normal for young adults at their peak bone mineral density. The World Health Organization (WHO) interprets the T-scores as follows: Above -1 Normal bone density Between -1 and -2.5 Osteopenia Equal to / or below -2.5 Osteoporosis As a practical clinical guideline, osteopenia may be graded as follows: Mild -1 through -1.5 Moderate -1.6 through -2.0 Severe -2.1 through -2.4 The Z-score is the number of standard deviations above or below age-matched controls. A Z-score of less than -1.5 would be considered abnormal. References: 1. NIH Osteoporosis and Related Bone Diseases www osteo.org 2. International Society for Clinical Densitometry www iscd.org 3. National Osteoporosis Foundation www nof.org Electronically Signed: Ar Champagne MD at 13:01 EST ,
== END | disposition home or self-care (01) ==
LOC: OPBD 10:53
PROVIDERS: PCP Family Medicine; Referring Provider Nurse Practitioner Family; Visit Provider Nurse Practitioner Family
DX: Z13.820 Encounter for screening for osteoporosis (principal)
CPT/HCPCS: 77080

== ENCOUNTER → 2024-02-18 | Outpatient (CLI) | payer OTHER, SELFPAY ==
--- NOTE | 2024-02-18 10:45 | BI_ITS ---
MAMMOGRAPHY - BILATERAL SCREENING REASON FOR EXAM: Female, 58 years old. Routine annual screening examination. PERTINENT HISTORY: Personal history of breast cancer. Prior left lumpectomy with radiation treatment. Mother with breast cancer. TECHNIQUE: Digital bilateral breast amparo (3D mammographic acquisition) in the CC and MLO projections. 2-D mediolateral oblique (MLO) and craniocaudad (CC) views of both breasts were obtained. CAD: Full Field Digital Mammography with Computer Added Detection was performed. COMPARISON: Comparison is made with prior study February 13, 2023 and February 07, 2022. FINDINGS: Breast Composition: The breasts are extremely dense, which lowers the sensitivity of mammography. There are no dominant masses or suspicious calcifications. Surgical clips are once again seen in the left axillary region. No other significant abnormalities are identified. There has been no significant change since the prior study. BI/SCRN MAMM (CAD)W/AMPARO BILAT IMPRESSION: Stable bilateral screening mammogram. Yearly follow-up mammogram recommended. (A) ASSESSMENT CATEGORY: BIRADS Category 2: Benign. A letter regarding these results will be sent to the patient by the facility within 30 days. Approximately 10% of breast cancers are not detected by mammography. A normal mammogram should not delay biopsy of a clinically suspicious abnormality. [id number] Electronically Signed: Ar Champagne MD at 10:01 EDT ,
== END | disposition home or self-care (01) ==
LOC: OPBI 10:45
PROVIDERS: PCP Family Medicine; Referring Provider Surgery; Visit Provider Surgery
DX: Z12.31 Encounter for screening mammogram for malignant neoplasm of breast (principal); Z85.3 Personal history of malignant neoplasm of breast
CPT/HCPCS: 77063; 77067

== ENCOUNTER → 2025-02-18 | Outpatient (CLI) | payer OTHER, SELFPAY ==
--- NOTE | 2025-02-18 10:16 | BI_ITS ---
EXAM: SCRN MAMM (CAD)W/AMPARO BILAT 02/18/2025 CLINICAL HISTORY: F, Age 59 y/o , H/O TREATED BREAST CANCER, ANNUAL SCREENING TECHNIQUE: Bilateral screening digital breast tomosynthesis with 2D and 3D images. Computer aided detection. COMPARISON: Prior exam(s) dated 02/18/2024, 02/13/2023, 02/07/2022. FINDINGS: TISSUE DENSITY: The breast tissue is heterogenously dense, which may obscure small masses. The mammogram demonstrates that the patient has dense breasts. Supplemental screening with whole breast ultrasound or MRI may be considered for further evaluation. Bilateral Breast Mammographic Findings: No significant masses, calcifications or other abnormalities are identified. BI/SCRN MAMM (CAD)W/AMPARO BILAT IMPRESSION: Right Breast: BIRADS 1 NEGATIVE. Left Breast: BIRADS 1 NEGATIVE. OVERALL FINAL ASSESSMENT: BIRADS 1 NEGATIVE. RECOMMENDATION: Routine annual follow-up in 1 Year A letter with findings and recommendations will be mailed to the patient. Reading Location: [id number]
== END | disposition home or self-care (01) ==
LOC: OPBI 10:14
PROVIDERS: PCP Family Medicine; Referring Provider Student in an Organized Health Care Education/Training Program; Visit Provider Student in an Organized Health Care Education/Training Program
DX: Z12.31 Encounter for screening mammogram for malignant neoplasm of breast (principal)
CPT/HCPCS: 77063; 77067

== ENCOUNTER → 2025-03-31 | Outpatient (CLI) | payer OTHER, SELFPAY ==
--- NOTE | 2025-03-31 09:24 | NM_ITS ---
PROCEDURE: BONE SCAN WHOLE BODY 03/31/2025 REASON FOR EXAM: BILAT HIP PAIN; H/O BREAST CANCER TECHNIQUE: Delayed whole-body imaging after radiopharmaceutical administration. RADIOPHARMACEUTICAL: 26.1 mCi Technetium-99m MDP IV COMPARISON: None. FINDINGS: Mild degenerative changes are seen of the knees, [id number]. Mild degenerative changes are seen at the acromioclavicular joints. No abnormal uptake is seen in the region of the hips. No findings are seen to suggest the presence of osseous metastatic disease. NM/Bone Scan Whole Body IMPRESSION: No scintigraphic evidence of osseous metastatic disease. Reading Location: [place] [id number]
--- OUTSIDE RECORDS SUMMARY | 2025-03-31 20:46 | XMS RPT_ITS | CCD ---
Author Organization [facility] Providers Care Library Page Name Role Phone [place] PA, PA-C Greta Primary Care Provider [phone] Dr. Andreas Miller Attending Provider Dr. Andreas Miller Referring Provider [phone] [place] JOVITA, PA-C Greta Referring Provider Dr. Bebeto Feng Attending Provider Dr. Oracio Allen Attending Provider Dr. Abdoul Juan Attending Provider Farhan GARNETTER GARNETTER-C Lali Attending Provider [place] PA, PA-C Greta Primary Care Provider [place] PA, PA-C Greta Referring Provider [place] PA, PA-C Greta Primary Care Provider [phone] Dr. Andreas Miller Attending Provider [phone] [place] PA, PA-C Greta Referring Provider Dr. Abdoul Juan Attending Provider Farhan GARNETTER GARNETTER-C Lali Attending Provider [place] PA, PA-C Greta Primary Care Provider Dr. Andreas Miller Attending Provider HILLS, GRETA Primary Care Unavailable HILLS, GRETA Consulting Unavailable HILLS, GRETA Attending Unavailable HILLS, GRETA Admitting Unavailable PROVIDER, UNKNOWN Consulting Unavailable HILLS, GRETA Consulting Unavailable HILLS, GRETA Attending Unavailable [place], GRETA Admitting Unavailable HILLS, GRETA Primary Care Unavailable PROVIDER, UNKNOWN Consulting Unavailable [place], GRETA Primary Care Unavailable [place], GRETA Consulting Unavailable [place], GRETA Attending Unavailable HILLS, GRETA Admitting Unavailable PROVIDER, UNKNOWN Consulting Unavailable FARHAN, LALI R Attending Unavailable [place], GRETA Consulting Unavailable FARHAN, LALI R Admitting Unavailable FARHAN, LALI R Primary Care Unavailable PROVIDER, UNKNOWN Consulting Unavailable [place], GRETA Primary Care Unavailable [place], GRETA Consulting Unavailable [place], GRETA Attending Unavailable [place], GRETA Admitting Unavailable PROVIDER, UNKNOWN Consulting Unavailable [place] PA-C, Greta Primary Care Provider Dr. Bebeto Feng MD Attending Provider Dr. Bebeto Feng MD Referring Provider [place] PA-C, Greta Referring Provider Dr. Abdoul Juan MD Attending Provider Dr. Andreas Miller DO Attending Provider Dr. Andreas Miller DO Referring Provider [place] PA-C, Greta Primary Care Provider [place] PA-C, Greta Referring Provider Farhan GARNETTER-C, Lali Attending Provider Mary Todd Attending Unavailable [place] PA, Greta Referring Unavailable [place] PA, Greta Primary Care Unavailable Andreas Miller Referring Unavailable Andreas Miller Attending Unavailable [place] PA, Greta Primary Care Unavailable Farhan GARNETTER, Lali Attending Unavailable [place] PA, Greta Primary Care Unavailable Farhan GARNETTER, Lali Referring Unavailable [place] PA, Greta Referring Unavailable [place] PA, Greta Primary Care Unavailable Farhan GARNETTER, Lali Attending Unavailable [place] PA, Greta Primary Care Unavailable Bebeto Feng Referring Unavailable Bebeto Feng Attending Unavailable Farhan GARNETTER, Lali Attending Unavailable [place] PA, Greta Primary Care Unavailable [place] PA, Greta Referring Unavailable [place] PA, Greta Primary Care Unavailable [place] PA, Greta Referring Unavailable Abdoul Juan Attending Unavailable Andreas Miller Attending Unavailable [place] PA, Greta Referring Unavailable [place] PA, Greta Primary Care Unavailable Medications Current Medications Medication Drug Class(es) Dates Sig (Normalized) Sig (Original) amLODIPine 10 mg oral tablet (8 sources) Dihydropyridine Calcium Channel Yulissa Start: 05-21-2024 take 5 mg by mouth once daily Amlodipine 10 mg tablet Active 5 mg PO DAILY May 21, 2024 10:38am Start: 04-22-2019 End: 05-21-2024 take 1 tablet by mouth once daily Amlodipine 10 MG tablet Discontinued 10 mg PO DAILY April 22, 2019 12:00am May 21, 2024 10:40am Ascorbic Acid (6 sources) Vitamin C Start: 08-22-2021 take 1 capsule by mouth once daily Ascorbic Acid (Vitamin C) Active 1 CAP PO DAILY August 22, 2021 9:48am Start: 08-22-2021 Ascorbic Acid (Vitamin C) 1,000 mg Capsule, Extended Release Active 1 NMA PO DAILY August 22, 2021 1:00am Start: 08-22-2021 take 1 capsule by mo uth once daily Ascorbic Acid (Vitamin C) Active 1 CAP PO DAILY August 22, 2021 12:00am Start: 08-22-2021 take 1 capsule by mo uth once daily Ascorbic Acid (Vitamin C) Active 1 CAP PO DAILY August 22, 2021 1:00am black seed (2 sources) Start: 05-21-2024 black seed Act giovanna PO May 21, 2024 12:00am calcium carbonate 1500 mg oral tablet (6 sources) Start: 12-21-2021 take 1 tablet by mouth once daily Calcium Carbonate (Calcium 600) 600 mg calcium (1,500 mg) tablet Active 600 mg PO DAILY December 21, 2021 12:00am cholecalciferol 0.05 mg oral capsule (6 sources) Vitamin D Start: 08-22-2021 take 1 capsule by mouth once daily Cholecalciferol (Vitamin D3) (Vitamin D3) 50 mcg (2,000 unit) Capsule Active 50 ug PO DAILY August 22, 2021 1:00am immuno synbiotic (4 sources) Start: 01-12-2022 take 1 tablet by mouth once daily immuno synbiotic Active 1 TABLET PO DAILY January 12, 2022 11:43am Start: 01-12-2022 take 1 tablet by madeleine once daily immuno synbiotic Active 1 TABLET PO DAILY January 11, 2022 11:00pm Start: 01-12-2022 take 1 tablet by madeleine th once daily immuno synbiotic Active 1 TABLET PO DAILY January 12, 2022 12:00am L.Acidoph, Paracasei,B. Lact is (4 sources) Start: 04-22-2019 L.Acidoph, Par acasei,B. Lactis Active 1 EACH PO DAILY April 22, 2019 11:57am Start: 04-22-2019 L.Acidoph, Par acasei,B. Lactis Active 1 EACH PO DAILY April 21, 2019 11:00pm Start: 04-22-2019 L.Acidoph, Par acasei,B. Lactis Active 1 EACH PO DAILY April 22, 2019 12:00am levothyroxine sodium 0.05 mg oral tablet (6 sources) l-Thyroxine Start: 04-22-2019 take 1 tablet by mouth once daily Levothyroxine 50 MCG tablet Active 50 ug PO DAILY April 22, 2019 12:00am Magnesium (6 sources) Start: 12-21-2021 take 200 mg by mouth once daily Magnesium Active 200 MG PO DAILY December 21, 2021 10:01am Start: 12-21-2021 take 1 tablet by madeleine th once daily Magnesium 200 mg tablet Active 200 mg PO DAILY December 21, 2021 12:00am Start: 12-21-2021 take 200 mg by mouth once jason y Magnesium Active 200 MG PO DAILY December 20, 2021 11:00pm Start: 12-21-2021 take 200 mg by mouth once jason y Magnesium Active 200 MG PO DAILY December 21, 2021 12:00am Rosebud-3 Fatty Acids (4 sources) Start: 08-22-2021 take 1000 mg by mout h once daily Rosebud-3 Fatty Acids Active 1000 MG PO DAILY August 22, 2021 9:48am Start: 08-22-2021 take 1000 mg by mouth once tyler ly Rosebud-3 Fatty Acids Active 1000 MG PO DAILY August 22, 2021 12:00am Start: 08-22-2021 take 1000 mg by mouth once tyler ly Rosebud-3 Fatty Acids Active 1000 MG PO DAILY August 22, 2021 1:00am Rosebud-3 Fatty Acids Capsule (2 sources) Start: 08-22-2021 take 1 capsule by mouth once daily Rosebud-3 Fatty Acids Capsule Active 1000 mg PO DAILY August 22, 2021 1:00am valACYclovir 1000 mg oral tablet (6 sources) Herpesvirus Nucleoside Analog DNA Polymerase Inhibitor, Herpes Simplex Virus Nucleoside Analog DNA Polymerase Inhibitor, Herpes Zoster Virus Nucleoside Analog DNA Polymerase Inhibitor Start: 08-08-2021 Valacyclovir 1 gram tablet Active 1000 mg PO .prn August 08, 2021 12:00am Start: 08-08-2021 Valacyclovir A ctive 1000 MG PO .prn August 07, 2021 11:00pm vitamin B12 (6 sources) Vitamin B12 Start: 08-22-2021 take 50 ug by mouth once daily Cyanocobalamin (Vitamin B-12) Active 50 MCG PO DAILY August 22, 2021 9:48am Start: 08-22-2021 take 2 tablets by mo uth once daily Cyanocobalamin (Vitamin B-12) 25 mcg Tablet Active 50 ug PO DAILY August 22, 2021 1:00am Start: 08-22-2021 take 50 ug by mouth once daily Cyanocobalamin (Vitamin B-12) Active 50 MCG PO DAILY August 22, 2021 12:00am Start: 08-22-2021 take 50 ug by mouth once daily Cyanocobalamin (Vitamin B-12) Active 50 MCG PO DAILY August 22, 2021 1:00am Zinc (6 sources) Start: 08-22-2021 take 50 mg by mouth once daily Zinc Active 50 MG PO DAILY August 22, 2021 9:48am Start: 08-22-2021 take 1 capsule by mo [facility] once daily Zinc 50 mg Capsule Active 50 mg PO DAILY August 22, 2021 1:00am Start: 08-22-2021 take 50 mg by mouth once daily Zinc Active 50 MG PO DAILY August 22, 2021 12:00am Start: 08-22-2021 take 50 mg by mouth once daily Zinc Active 50 MG PO DAILY August 22, 2021 1:00am Completed/Discontinued Medications Medication Drug Class(es) Dates Sig (Normalized) Sig (Original) acetaminophen 325 mg / HYDROcodone bitartrate 5 mg oral tablet (6 sources) Opioid Agonist Start: 08-24-2021 End: 01-02-2022 Hydrocodone-Acetami nophen 5-325 mg tablet Discontinued 1 {tbl} PO EVERY 6 HOURS as needed for pain 6 2 August 24, 2021 January 02, 2022 10:27am Start: 08-24-2021 End: 01-02-2022 take 1 tablet by mouth every six hours Hydrocodone-Acetaminophen Discontinued 1 TABLET PO EVERY 6 HOURS 6 2 August 24, 2021 January 02, 2022 9:27am anastrozole 1 mg oral tablet (12 sources) Aromatase Inhibitor Start: 01-02-2022 End: 09-20-2022 take 1 tablet by mouth once daily Anastrozole 1 MG tablet Discontinued 1 mg PO DAILY January 12, 2022 12:00am September 20, 2022 11:38am Estradiol (4 sources) Estrogen Start: 09-05-2021 End: 12-21-2021 Estradiol Discontinued MG SC DAILY September 05, 2021 4:58pm December 21, 2021 10:00am Start: 09-05-2021 End: 12-21-2021 Estradiol Discontinued MG SC DAILY September 05, 2021 12:00am December 21, 2021 9:00am Start: 09-05-2021 End: 12-21-2021 Estradiol Discontinued MG SC DAILY September 05, 2021 1:00am December 21, 2021 10:00am Estradiol 10 mg pellet (2 sources) Start: 09-05-2021 End: 12-21-2021 Estradiol 10 mg pellet Discontinued mg SC DAILY September 05, 2021 1:00am December 21, 2021 10:00am exemestane 25 mg oral tablet (6 sources) Aromatase Inhibitor Start: 02-27-2023 End: 02-26-2024 take 1 tablet by mouth once daily after mealtime Exemestane 25 mg tablet Discontinued 25 mg PO DAILY May 17, 2023 12:17pm February 26, 2024 11:06am must administer after a meal immuno synbiotic tablet (2 sources) Start: 01-12-2022 End: 05-21-2024 take 1 tablet by mouth once daily immuno synbiotic tablet Discontinued 1 {tbl} PO DAILY January 12, 2022 12:00am May 21, 2024 10:39am L.Acidoph,Paracasei ,B.Animalis 1 EACH capsule (2 sources) Start: 04-22-2019 End: 05-21-2024 take 1 capsule by mouth once daily L.Acidoph,Paracase i,B.Animalis 1 EACH capsule Discontinued 1 NMA PO DAILY April 22, 2019 12:00am May 21, 2024 10:39am letrozole 2.5 mg oral tablet (4 sources) Aromatase Inhibitor Start: 10-03-2022 End: 02-01-2023 take 1 tablet by mouth once daily Letrozole 2.5 mg tablet Discontinued 2.5 mg PO DAILY October 03, 2022 1:00am February 01, 2023 11:05am tamoxifen 20 mg oral tablet (4 sources) Estrogen Agonist/Antagoni st Start: 02-01-2023 End: 02-27-2023 take 1 tablet by mouth once daily Tamoxifen 20 mg tablet Discontinued 20 mg PO DAILY February 01, 2023 12:00am February 27, 2023 12:27pm testosterone 100 mg drug implant (6 sources) Androgen Start: 08-22-2021 End: 12-21-2021 Testosterone 100 mg Pellet Discontinued 100 mg SC DAILY August 22, 2021 1:00am December 21, 2021 10:00am Problems Active Problems Problem Classification Problem Date Documented Da te Episodic/Chronic Administrative/social admission (11 sources) Patient encounter status; Translations: [Counseling, unspecified] Episodic Cancer of breast (20 sources) Malignant tumor of breast ; Translations: [Malignant neoplasm of unspecified site of left female breast] Onset: 03-18-2025 Chronic Essential hypertension (6 sources) Hypertensive disorder; Translations: [Essential (primary) hypertension] 08-08-2021 Chronic Lymphadenitis (6 sources) Axillary lymphadenopathy; Translations: [Localized enlarged lymph nodes] 08-08-2021 Episodic Menopausal disorders (6 sources) Postmenopausal bleeding; Translations: [Postmenopausal bleeding] 04-29-2019 Chronic Nonmalignant breast conditions (6 sources) Cyst of breast; Translations: [Solitary cyst of unspecified breast] 08-08-2021 Episodic Other aftercare (1 source) Encounter for adjustment and management of vascular access device; Translations: [Encounter for adjustment and management of vascular access device] Onset: 03-18-2025 Episodic Other bone disease and musculoskeletal deformities (2 sources) Osteopenia; Translations: [Other specified disorders of bone density and structure, unspecified site] 10-10-2023 Episodic Other non-traumatic joint disorders (3 sources) Hip pain; Translations: [Pain in right hip] 04-02-2024 Episodic Other non-traumatic joint disorders (2 sources) Pain in right hip; Translations: [Pain in right hip] Onset: 03-18-2025 Episodic Other non-traumatic joint disorders (2 sources) Pain in left hip; Translations: [Pain in left hip] Onset: 03-18-2025 Episodic Other screening for suspected conditions (not mental disorders or infectious disease) (6 sources) Endometrium thickened; Translations: [Abnormal findings on diagnostic imaging of other specified body structures] 04-29-2019 Chronic Other screening for suspected conditions (not mental disorders or infectious disease) (1 source) Encounter for screening mammogram for malignant neoplasm of breast; Translations: [Encounter for screening mammogram for malignant neoplasm of breast] Onset: 02-24-2025 Episodic Other skin disorders (4 sources) Dry skin dermatitis; Translations: [Xerosis cutis] 09-20-2022 Episodic Residual codes; unclassified (6 sources) Estrogen receptor positive tumor; Translations: [Estrogen receptor positive status [ER+]] 01-02-2022 Episodic Residual codes; unclassified (2 sources) Estrogen receptor positive status [ER+]; Translations: [Estrogen receptor positive status [ER+]] Onset: 03-18-2025 Episodic Thyroid disorders (3 sources) Hypothyroidism, unspecified; Translations: [Hypothyroidism, unspecified] Onset: 11-26-2024 Chronic Past or Other Problems Problem Classification Problem Date Documented Da te Episodic/Chronic Other aftercare (1 source) 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 [address] [place] [id number] OFFICE VISIT Date of Service: 03/18/25 0933 MR#: [id number] Acct: [id number] Name: JENNIFER MALIK Rep #: [id number] : 1965 From: Lali Real NP GARNETTER -C Age/Sex: 59/F Location: [facility] Status: Signed HPI Subjective Date of Service 03/18/25 Chief Complaint Breast cancer on treatment History of Present Illness 59-year-old female with a positive family history of breast cancer (mother, niece maternal side, sister who opted for prophylactic bilateral mastectomy after repeated abnormalities prompting biopsies on the breasts but not confirmed cancer), most likely postmenopausal at breast cancer diagnosis in 2020 (last menstrual period was at age 53, started using hormonal therapy for menopausal symptoms at age 55 and stopped when she became aware of the cancer diagnosis in 2020) With such a history she was vigilant with screening mammographies. January 2021 category 3 mammogram and ultrasound and a 6 months follow-up was advised. July 2021 patient self palpated a painless lump in the left breast, a diagnostic mammogram was suspicious for malignancy. July 2021 ultrasound-guided biopsy left breast confirmed an invasive ductal cancer, ER 90%, MI 90%, HER-2 negative. August 2021 bilateral breasts MRI: No suspicious abnormalities were seen but breasts were dense. August 24, 2021 patient underwent left breast partial mastectomy with sentinel lymph node biopsy by Dr. Allen; pathology confirmed a grade 2 invasive ductal cancer ER positive over 95% MI +75% and HER-2 negative, cancer measuring 1 cm in maximum diameter with DCIS, negative margin, no lymphovascular invasion and 3 sentinel lymph nodes were negative for metastatic cancer. Oncotype DX score 17 with no significant benefit from systemic chemotherapy. Treatment summary and response: August 2021 left partial mastectomy with sentinel lymph node. October 2021 adjuvant radiation therapy 2850 cGy in 5 fractions. October 2021 systemic adjuvant hormonal therapy based on Oncotype DX score was recommended by Dr. Feng but patient did not consent. After a second opinion in December 2021 she consented: Anastrozole January - April 2022 then stopped due to pruritus. Letrozole September 2022???January 2023 stopped due to musculoskeletal pains. Tamoxifen January 2023???February 2023 stopped due to lower extremities edema negative DVT. Exemestane February 2023???May 2023 stopped because of knee pain. Interval History The patient is presenting to clinic for a planned 6 month follow up. Underwent bilateral screening mammography on 02/18/25, BI RADS 1. Concerns today include bilat hip pain. Rates pain 3-4/10 intermittently. Only problematic when she has been sedentary for a long period of time then attempts to ambulate. Unsure of when pain began. Is not daily or worsening in terms of severity. Occasionally is painful at night. No other sites of bone pain. Specifically denies loss, headaches, chest pain, palpitations, cough, shortness of breath, abdominal pain, changes in her bowel habits, swelling or pain of her extremities. Further denies any changes in her breasts during self-exam. [facility] Medical History Right hip pain Routine gynecological examination Osteopenia Screening for osteoporosis Dry skin dermatitis ER+ (estrogen receptor positive status) Encounter for education Wears contact lenses Wears glasses Cancer Alcohol use Former smoker History of edema Hypertension Breast cancer, left HTN (hypertension) Hypothyroidism Surgical History History of lumpectomy ( 08/2021) History of hysteroscopy History of hysteroscopy S/P tubal ligation S/P ACL repair Family History Mother Breast cancer Cancer skin Thyroid disorder Brother Cancer Social History current occupational status: employed 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 Smoking Status: Former smoker quit date: 08/04/21 Tobacco: How many years used: 10 alcohol intake: current alcohol intake frequency: 3 or more drinks per day substance use type: does not use caffeine: Yes Type: coffee Number of servings: 1 what type of physical activity do you participate in: other details: golfing seatbelt use: always additional social history: Spouse - Corey self employeed Female Reproductive History Menstrual Date of menopause: 05/24/19 ROS ROS Narrative Negative except as documented in the interval HPI Intake Vital Signs 10/28/24 11:38 03/18/25 09:35 Height 5 ft 4 in 5 ft 4 in Weight: 128 lb 127 lb 6 oz BMI 21.9 21.8 BP 147/83 H 144/86 H B (more content not included)... Normal [facility] Breast imaging reportOrdered By: Iqra Early on 02-18-2025 Study report [facility] [address] [place], [place] [address] SCRN MAMM (CAD)W/AMPARO BILAT MR#: [id number] Acct: [id number] Name: JENNIFER MALIK Rep #: [id number] : 1965 F 59 From: Tory Early MD PCP: Greta Marcos PA-C Status: MANSI OLIVIA Study:SCRN MAMM (CAD)W/AMPARO BILAT Date of Exa m: 02/18/25 Exam# [id number] Ordering Dr: Andreas Miller DO EXAM: SCRN MAMM (CAD)W/AMPARO BILAT 02/18/2025 CLINICAL HISTORY: F, Age 59 y/o , H/O TREATED BREAST CANCER, ANNUAL SCREENING TECHNIQUE: Bilateral screening digital breast tomosynthesis with 2D and 3D images. Computeraided detection. COMPARISON: Prior exam(s) dated 02/18/2024, 02/13/2023, 02/07/2022. FINDINGS: TISSUE DENSITY: The breast tissue is heterogenously dense, which may obscure small masses. The mammogram demonstrates that the patient has dense breasts. Supplemental screening with whole breast ultrasound or MRI may be considered for further evaluation. Bilateral Breast Mammographic Findings: No significant masses, calcifications or other abnormalities are identified. BI/SCRN MAMM (CAD)W/AMPARO BILAT IMPRESSION: Right Breast: BIRADS 1 NEGATIVE. Left Breast: BIRADS 1 NEGATIVE. OVERALL FINAL ASSESSMENT: BIRADS 1 NEGATIVE. RECOMMENDATION: Routine annual follow-up in 1 Year A letter with findings and recommendations will be mailed to the patient. Reading Location: [id number] CC: ALYSA Marcos; Dr. Andreas Miller DO ~ Digital Advertising Specialist: Signed [facility] SCRN MAMM (CAD)W/AMPARO BILATo n 02-18-2025 SCRN MAMM (CAD)W/AMPARO BILAT [facility] [address] [place] [id number] SCRN MAMM (CAD)W/AMPARO BILAT MR#: [id number] Acct: [id number] Name: JENNIFER MALIK Rep #: [id number] : 1965 F 59 From: Iqra Early MD PCP: Greta Marcos PA-C Status: REG CLI Study: SCRN MAMM (CAD)W/AMPARO BILAT Date of Exam: 02/05 01/30 Exam# [id number] Ordering Dr: Andreas Miller DO EXAM: SCRN MAMM (CAD)W/AMPARO BILAT 02/18/2025 CLINICAL HISTORY: F, Age 59 y/o , H/O TREATED BREAST CANCER, ANNUAL SCREENING TECHNIQUE: Bilateral screening digital breast tomosynthesis with 2D and 3D images. Computer aided detection. COMPARISON: Prior exam(s) dated 02/18/2024, 02/13/2023, 02/07/2022. FINDINGS: TISSUE DENSITY: The breast tissue is heterogenously dense, which may obscure small masses. The mammogram demonstrates that the patient has dense breasts. Supplemental screening with whole breast ultrasound or MRI may be considered for further evaluation. Bilateral Breast Mammographic Findings: No significant masses, calcifications or other abnormalities are identified. BI/SCRN MAMM (CAD)W/AMPARO BILAT IMPRESSION: Right Breast: BIRADS 1 NEGATIVE. Left Breast: BIRADS 1 NEGATIVE. OVERALL FINAL ASSESSMENT: BIRADS 1 NEGATIVE. RECOMMENDATION: Routine annual follow-up in 1 Year A letter with findings and recommendations will be mailed to the patient. Reading Location: [facility] CC: ALYSA Marcos; Dr. Andreas Miller DO Digital Advertising Specialist: Signed Normal [facility] TSHon 01-15-2025 TSH Qn 2.40 m[IU]/L Normal 0.35 - 3.74 [facility] Comment on above: Performed By: #### [id number] #### [place] [address] TSHon 11-26-2024 TSH Qn 5.67 m[IU]/L High 0.35 - 3.74 [facility] Comment on above: Performed By: #### 2 [id number] #### [place] [address] Absolute lymphocyte countOrd ered By: Bebeto Healy on 10-28-2024 Lymphocytes Auto (Unsp spec) [#/Vol] 1.40 10*3/uL 0.83-4.51 [facility] Absolute neutrophil countOrd ered By: Bebeto [facility] on 10-28-2024 Neutrophils (Bld) [#/Vol] 8.2 10*3/uL High 2.0-7.7 [facility] Albumin to globulin ratioOrd ered By: Bebeto [facility] on 10-28-2024 Albumin/Globulin [Mass ratio] 1.0 {ratio} 0.9-2.4 [facility] Automated lymphocyte count a s percentage of total leukocytesOrdered By: Bebeto [facility] on 10-28-2024 Lymphocytes/100 WBC Auto (Unsp spec) 13.3 % Low 19-41 [facility] Basophil percentageOrdered B y: Bebeto [facility] on 10-28-2024 Basophils/100 WBC (Bld) 0.7 % 0-1 [facility] Bilirubin, totalOrdered By: Bebeto [facility] on 10-28-2024 Bilirubin [Mass/Vol] 0.90 mg/dL 0.20-1.00 [facility] Comment on above: For patients on eltr ombopag therapy, use of Dimension [place] TBIL is not recommended. Blood urea nitrogen (BUN)/cr eatinine ratioOrdered By: Bebeto [facility] on 10-28-2024 Urea nitrogen/Creatinine [Mass ratio] 15.7 mg/mg 10-20 [facility] CBC W/Diff, Automatedon 10-09 Absolute Lymph 1.40 X10 3/uL Normal 0.83-4.51 [facility] Comment on above: Performed By: #### L 100.0100, L500.4050 #### [facility] [address] [place], [address] Absolute Neut 8.2 X10 3/uL High 2.0-7.7 [facility] Comment on above: Performed By: #### L 100.0100, L500.4050 #### [facility] [address] [place], [address] Basophils/100 WBC (Bld) 0.7 % Normal 0-1 [facility] [facility] Comment on above: Performed By: #### L 100.0100, L500.4050 #### [facility] [address] [place], [address] Eosinophils/100 WBC (Bld) 0.9 % Normal 0-5 [facility] Comment on above: Performed By: #### L 100.0100, L500.4050 #### [facility] [address] [place], [address] Erythrocyte distribution width (RBC) [Ratio] 12.6 % Normal 11.6-14.6 [facility] Comment on above: Performed By: #### L 100.0100, L500.4050 #### [facility] [address] [place], [address] Hematocrit (Bld) [Volume fraction] 40.5 % Normal 37-47 [facility] Comment on above: Performed By: #### L 100.0100, L500.4050 #### [facility] [address] [place], [address] Hemoglobin (Bld) [Mass/Vol] 13.8 g/dL Normal 12.0-15.0 [facility] Comment on above: Performed By: #### L 100.0100, L500.4050 #### [facility] [address] [place], [address] IG% 0.400 Normal 0.0-0.9 [facility] Comment on above: Result Comment: IG% - Immature Granulocytes (promyelocytes, myelocytes and metamyelocytes) > 1% indicates that a LEFT SHIFT is Present. Performed By: #### L 100.0100, L500.4050 #### [facility] [address] [place], [address] Lymphocytes/100 WBC (Bld) 13.3 % Low 19-41 [facility] Comment on above: Performed By: #### L 100.0100, L500.4050 #### [facility] [address] [place], [address] MCH (RBC) [Entitic mass] 32.4 pg High 27.0-32.0 [facility] Comment on above: Performed By: #### L 100.0100, L500.4050 #### [facility] [address] [place], [address] MCHC (RBC) [Mass/Vol] 34.1 g/dL Normal 32-36 [facility] Comment on above: Performed By: #### L 100.0100, L500.4050 #### [facility] [address] [place], [address] MCV (RBC) [Entitic vol] 95.1 fL Normal 81-99 [facility] Comment on above: Performed By: #### L 100.0100, L500.4050 #### [facility] [address] [place], [address] Monocytes/100 WBC (Bld) 6.5 % Normal 0-10 [facility] Comment on above: Performed By: #### L 100.0100, L500.4050 #### [facility] [address] [place], [address] Neutrophils/100 WBC (Bld) 78.2 % High 47-70 [facility] Comment on above: Performed By: #### L 100.0100, L500.4050 #### [facility] [address] [place], [address] Nucleated RBC (Bld) [#/Vol] 0 10*3/uL Normal 0-5 [facility] Comment on above: Performed By: #### L 100.0100, L500.4050 #### [facility] [address] [place], [address] Platelet mean volume (Bld) [Entitic vol] 8.8 fL Normal 6.2-12.0 [facility] Comment on above: Performed By: #### L 100.0100, L500.4050 #### [facility] [address] [place], [address] Platelets (Bld) [#/Vol] 303 10*3/uL Normal 150-450 [facility] Comment on above: Performed By: #### L 100.0100, L500.4050 #### [facility] [address] [place], [address] RBC (Bld) [#/Vol] 4.26 10*6/uL Normal 4.2-5.4 [facility] Comment on above: Performed By: #### L 100.0100, L500.4050 #### [facility] [address] [place], [address] RDW SD 43.9 fl Normal 35.1-43.9 [facility] Comment on above: Performed By: #### L 100.0100, L500.4050 #### [facility] [address] [place], [address] WBC (Bld) [#/Vol] 10.5 10*3/uL Normal 4.4-11.0 [facility] Comment on above: Performed By: #### L 100.0100, L500.4050 #### [facility] [address] [place], [address] Carbon dioxide measurementOr dered By: Bebeto Feng on 10-28-2024 CO2 [Moles/Vol] 29.0 mmol/L 21.0-32.0 [facility] Chloride measurementOrdered By: Bebeto Feng on 10-28-2024 Chloride [Moles/Vol] 101 mmol/L 98-107 [facility] Comprehensive Metabolic Prof ilon 10-28-2024 Albumin [Mass/Vol] 4.0 g/dL Normal 3.2-5.0 [facility] Comment on above: Performed By: #### L 100.0100, L500.4050 #### [facility] [address] [place], [address] Albumin/Globulin [Mass ratio] 1.0 {ratio} Normal 0.9-2.4 [facility] Comment on above: Performed By: #### L 100.0100, L500.4050 #### [facility] [address] [place], [address] ALK P 118 U/L High 45-117 [facility] Comment on above: Performed By: #### L 100.0100, L500.4050 #### [facility] [address] [place], [address] ALT [Catalytic activity/Vol] 20 U/L Normal 13-56 [facility] Comment on above: Performed By: #### L 100.0100, L500.4050 #### [facility] [address] [place], [address] AST [Catalytic activity/Vol] 15 U/L Normal 15-37 [facility] Comment on above: Performed By: #### L 100.0100, L500.4050 #### [facility] [address] [place], [address] Bilirubin [Mass/Vol] 0.90 mg/dL Normal 0.20-1.00 [facility] Comment on above: Result Comment: For patients on eltrombopag therapy, use of Dimension [place] TBIL is not recommended. Performed By: #### L 100.0100, L500.4050 #### [facility] [address] [place], [address] BUN/CRE 15.7 RATIO Normal 10-20 [facility] Comment on above: Performed By: #### L 100.0100, L500.4050 #### [facility] [address] [place], [address] CA,Total 9.6 mg/dL Normal 8.5-10.1 [facility] Comment on above: Performed By: #### L 100.0100, L500.4050 #### [facility] [address] [place], [address] Chloride [Moles/Vol] 101 mmol/L Normal 98-107 [facility] Comment on above: Performed By: #### L 100.0100, L500.4050 #### [facility] [address] [place], [address] CO2 [Moles/Vol] 29.0 mmol/L Normal 21.0-32.0 [facility] Comment on above: Performed By: #### L 100.0100, L500.4050 #### [facility] [address] [place], [address] Creatinine [Mass/Vol] 0.76 mg/dL Normal 0.55-1.02 [facility] Comment on above: Result Comment: The validity of the calculated GFR GFRAA in patients over 70 years has not been determined. Clinical correlation is essential. Performed By: #### L 100.0100, L500.4050 #### [facility] [address] [place], [address] ECRCL 69.67 ml/min Normal [facility] Comment on above: Performed By: #### L 100.0100, L500.4050 #### [facility] [address] [place], [address] EST GFR - AA 100 mL/min Normal >60 [facility] Comment on above: Result Comment: Afri can Japanese GFR Calc Performed By: #### L 100.0100, L500.4050 #### [facility] [address] [place], [address] GAP 3 Low 5-15 [facility] Comment on above: Performed By: #### L 100.0100, L500.4050 #### [facility] [address] [place], [address] GFR/1.73 sq M.predicted among non-blacks MDRD (S/P/Bld) [Vol rate/Area] 82 mL/min/{1.73_m2} Normal >60 [facility] Comment on above: Result Comment: Non- GFR Calc Performed By: #### L 100.0100, L500.4050 #### [facility] [address] [place], [address] Globulin (S) [Mass/Vol] 4.0 g/dL Normal 2.2-4.2 [facility] Comment on above: Performed By: #### L 100.0100, L500.4050 #### [facility] [address] [place], [address] Glucose [Mass/Vol] 99 mg/dL Normal 74-106 [facility] Comment on above: Performed By: #### L 100.0100, L500.4050 #### [facility] [address] [place], [address] Potassium [Moles/Vol] 4.1 mmol/L Normal 3.5-5.1 [facility] Comment on above: Performed By: #### L 100.0100, L500.4050 #### [facility] [address] [place], [address] Sodium [Moles/Vol] 133 mmol/L Low 136-145 [facility] Comment on above: Performed By: #### L 100.0100, L500.4050 #### [facility] [address] [place], [address] T PROT 8.0 g/dL Normal 6.4-8.2 [facility] Comment on above: Performed By: #### L 100.0100, L500.4050 #### [facility] [address] [place], [place], [address] Urea nitrogen [Mass/Vol] 12 mg/dL Normal 7-18 [facility] Comment on above: Performed By: #### L 100.0100, L500.4050 #### [facility] [address] [place], [address] Eosinophil percentageOrdered By: Bebeto Feng on 10-28-2024 Eosinophils/100 WBC (Bld) 0.9 % 0-5 [facility] Erythrocyte distribution wid th ratioOrdered By: Bebeto Feng on 10-28-2024 Erythrocyte distribution width (RBC) [Ratio] 12.6 % 11.6-14.6 [facility] Erythrocyte distribution wid th standard deviationOrdered By: Bebeto Feng on 10-28-2024 Erythrocyte distribution width (RBC) [Ratio] 43.9 fl 35.1-43.9 [facility] Glomerular filtration rate ( GFR) estimationOrdered By: Bebeto Feng on 10-28-2024 GFR/1.73 sq M.predicted among non-blacks MDRD (S/P/Bld) [Vol rate/Area] 82 mL/min/{1.73_m2} >60 [facility] Comment on above: Non- GFR Calc Glucose measurementOrdered B y: Bebeto Feng on 10-28-2024 Glucose [Mass/Vol] 99 mg/dL 74-106 [facility] Hematocrit Auto (Bld) [Volum e fraction]Ordered By: Bebeto Feng on 10-28-2024 Hematocrit (Bld) [Volume fraction] 40.5 % 37-47 [facility] Hemoglobin measurementOrdere d By: Bebeto Feng on 10-28-2024 Hemoglobin (Bld) [Mass/Vol] 13.8 g/dL 12.0-15.0 [facility] Immature granulocytes/100 WB C Auto (Bld)Ordered By: Bebeto Feng on 10-28-2024 Immature granulocytes/100 WBC (Bld) 0.400 % 0.0-0.9 [facility] Comment on above: IG% - Immature Granu locytes (promyelocytes, myelocytes and metamyelocytes) > 1% indicates that a LEFT SHIFT is Present. Laboratory - Chemistry and C hemistry - challengeOrdered By: Bebeto Ping on 10-28-2024 AST [Catalytic activity/Vol] 15 U/L 15-37 [facility] MCV (mean corpuscular volume ) determinationOrdered By: Bebeto [facility] on 10-28-2024 MCV (RBC) [Entitic vol] 95.1 fL 81-99 [facility] Mean corpuscular hemoglobin (MCH) determinationOrdered By: [facility] on 10-28-2024 MCH (RBC) [Entitic mass] 32.4 pg High 27.0-32.0 [facility] Mean corpuscular hemoglobin concentration (MCHC) determinationOrdered By: [facility] on 10-28-2024 MCHC (RBC) [Mass/Vol] 34.1 g/dL 32-36 [facility] Mean platelet volume determi nationOrdered By: [facility] on 10-28-2024 Platelet mean volume (Bld) [Entitic vol] 8.8 fL 6.2-12.0 [facility] Monocyte percentageOrdered B y: [facility] on 10-28-2024 Monocytes/100 WBC (Bld) 6.5 % 0-10 [facility] Neutrophil percentageOrdered By: [facility] on 10-28-2024 Neutrophils/100 WBC (Bld) 78.2 % High 47-70 [facility] Nucleated red blood cell per centageOrdered By: [facility] on 10-28-2024 Nucleated RBC/100 WBC (Bld) [Ratio] 0 % 0-5 [facility] Oncology Visit Reporton 10-09 Oncology Visit Report [facility] [place] [facility] [place] [address] OFFICE VISIT Date of Service: 10/28/24 1135 MR#: [id number] Acct: [id number] Name: JENNIFER MALIK Rep #: [id number] : 1965 From: Abdoul Juan MD Age/Sex: 58/F Location: [facility] Status: Signed HPI Subjective Date of Service 10/28/24 Chief Complaint Breast cancer on treatment History of Present Illness 58-year-old female with a positive family history of breast cancer (mother, niece maternal side, sister who opted for prophylactic bilateral mastectomy after repeated abnormalities prompting biopsies on the breasts but not confirmed cancer), most likely postmenopausal at breast cancer diagnosis in 2020 (last menstrual period was at age 53, started using hormonal therapy for menopausal symptoms at age 55 and stopped when she became aware of the cancer diagnosis in 2020) With such a history she was vigilant with screening mammographies. January 2021 category 3 mammogram and ultrasound and a 6 months follow-up was advised. July 2021 patient self palpated a painless lump in the left breast, a diagnostic mammogram was suspicious for malignancy. July 2021 ultrasound-guided biopsy left breast confirmed an invasive ductal cancer, ER 90%, MI 90%, HER-2 negative. August 2021 bilateral breasts MRI: No suspicious abnormalities were seen but breasts were dense. August 24, 2021 patient underwent left breast partial mastectomy with sentinel lymph node biopsy by Dr. Allen; pathology confirmed a grade 2 invasive ductal cancer ER positive over 95% MI +75% and HER-2 negative, cancer measuring 1 cm in maximum diameter with DCIS, negative margin, no lymphovascular invasion and 3 sentinel lymph nodes were negative for metastatic cancer. Oncotype DX score 17 with no significant benefit from systemic chemotherapy. Treatment summary and response: August 2021 left partial mastectomy with sentinel lymph node. October 2021 adjuvant radiation therapy 2850 cGy in 5 fractions. October 2021 systemic adjuvant hormonal therapy based on Oncotype DX score was recommended by Dr. Feng but patient did not consent. After a second opinion in December 2021 she consented: Anastrozole January - April 2022 then stopped due to pruritus. Letrozole September 2022???January 2023 stopped due to musculoskeletal pains. Tamoxifen January 2023???February 2023 stopped due to lower extremities edema negative DVT. Exemestane February 2023???May 2023 stopped because of knee pain. [facility] Medical History Right hip pain Routine gynecological examination Osteopenia Screening for osteoporosis Dry skin dermatitis ER+ (estrogen receptor positive status) Encounter for education Wears contact lenses Wears glasses Cancer Alcohol use Former smoker History of edema Hypertension Breast cancer, left HTN (hypertension) Hypothyroidism Surgical History History of lumpectomy ( 08/2021) History of hysteroscopy History of hysteroscopy S/P tubal ligation S/P ACL repair Family History Mother Breast cancer Cancer skin Thyroid disorder Brother Cancer Social History current occupational status: employed 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 Smoking Status: Former smoker quit date: 08/04/21 Tobacco: How many years used: 10 alcohol intake: current alcohol intake frequency: 3 or more drinks per day substance use type: does not use caffeine: Yes Type: coffee Number of servings: 1 what type of physical activity do you participate in: other details: golfing seatbelt use: always additional social history: Spouse - Corey self employeed Female Reproductive History Menstrual Date of menopause: 05/24/19 ROS Constitutional Constitutional: Reports systems reviewed and no addt'l complaints, except as documented; Denies fatigue, fever(s) or weight loss Eyes Eyes: Reports systems reviewed and no addt'l complaints, except as documented; Denies change in vision ENT HEENT: Reports systems reviewed and no addt'l complaints, except as documented; Denies headache(s) or mouth lesions Cardiovascular Cardiovascular: Reports systems reviewed and no addt'l complaints, except as documented, edema and other Details: Ankles edema at the end of the day ; Denies chest pain Respiratory/Chest Respiratory/Chest: Reports systems reviewed and no addt'l complaints, except as documented, cough and other Details: Some lingering cough following an upper respiratory viral infection in October 2024 ; Denies dyspnea on exertion Gastrointestinal Gastrointestinal: Reports systems reviewed and no addt'l complaints, except as documented; Denies danie (more content not included)... Normal [facility] Platelet countOrdered By: Kat Feng on 10-28-2024 Platelets (Bld) [#/Vol] 303 10*3/uL 150-450 [facility] Potassium measurementOrdered By: Bebeto Feng on 10-28-2024 Potassium [Moles/Vol] 4.1 mmol/L 3.5-5.1 [facility] RBC Auto (Bld) [#/Vol]Ordere d By: Bebeto Feng on 10-28-2024 RBC (Bld) [#/Vol] 4.26 10*6/uL 4.2-5.4 [facility] Serum anion gap measurementO rdered By: Bebeto Feng on 10-28-2024 Anion gap [Moles/Vol] 3 mmol/L Low 5-15 [facility] Serum globulin measurementOr dered By: Bebeto Feng on 10-28-2024 Globulin (S) [Mass/Vol] 4.0 g/dL 2.2-4.2 [facility] Serum or plasma alanine gunderson otransferase (ALT) measurementOrdered By: Bebeto Feng on 10-28-2024 ALT [Catalytic activity/Vol] 20 U/L 13-56 [facility] Serum or plasma albumin karena urement (mass/volume)Ordered By: Bebeto Feng on 10-28-2024 Albumin [Mass/Vol] 4.0 g/dL 3.2-5.0 [facility] Serum or plasma alkaline aaron sphatase measurementOrdered By: Bebeto Feng on 10-28-2024 ALP [Catalytic activity/Vol] 118 U/L High 45-117 [facility] Serum or plasma calcium karena urement (mass/volume)Ordered By: Bebeto Feng on 10-28-2024 Calcium [Mass/Vol] 9.6 mg/dL 8.5-10.1 [facility] Serum or plasma creatinine m easurement (mass/volume)Ordered By: Bebeto Feng on 10-28-2024 Creatinine [Mass/Vol] 0.76 mg/dL 0.55-1.02 [facility] Comment on above: The validity of the calculated GFR & GFRAA in patients over 70 years has not been determined. Clinical correlation is essential. Serum or plasma urea nitroge n measurement (mass/volume)Ordered By: Bebeto Feng on 10-28-2024 Urea nitrogen [Mass/Vol] 12 mg/dL 7-18 [facility] Sodium levelOrdered By: Federico Feng on 10-28-2024 Sodium [Moles/Vol] 133 mmol/L Low 136-145 [facility] Total proteinOrdered By: Evan Feng on 10-28-2024 Protein [Mass/Vol] 8.0 g/dL 6.4-8.2 [facility] White blood cell (WBC) count Ordered By: Bebeto Nirajanahi on 10-28-2024 WBC (Bld) [#/Vol] 10.5 10*3/uL 4.4-11.0 [facility] CMP with eGFRon 09-02-2024 AGE 58 years Normal [facility] Comment on above: Performed By: #### 2 11359 #### [facility],[address] [place] [address] Albumin [Mass/Vol] 3.9 g/dL Normal 3.4 - 5.0 [facility] Comment on above: Performed By: #### 2 91509 #### [facility],[address] [place] [address] Albumin/Globulin [Mass ratio] 1.2 {ratio} Normal 0.9 - 1.6 [facility] Comment on above: Performed By: #### 2 05464 #### [facility],[address] [place] [address] ALK PHOS 101 U/L Normal 46 - 116 [facility] Comment on above: Performed By: #### 2 03124 #### [facility],[address] [place] [address] ALT [Catalytic activity/Vol] 21 U/L Normal 16 - 63 [facility] Comment on above: Performed By: #### 2 37259 #### [facility],[address] [place] [address] Anion gap [Moles/Vol] 14 mmol/L Normal 10 - 20 [facility] Comment on above: Performed By: #### 2 90888 #### [facility],[address] [place] [address] AST [Catalytic activity/Vol] 21 U/L Normal 13 - 39 [facility] Comment on above: Performed By: #### 2 30215 #### [facility],[address] [place] [address]809 B/C RATIO 13 ratio Normal 0 - 30 [facility] Comment on above: Performed By: #### 2 84506 #### [facility],[address] [place] [address]310 Bilirubin [Mass/Vol] 1.1 mg/dL High 0.2 - 1.0 [facility] Comment on above: Performed By: #### 2 89538 #### [facility],[address] [place] [address] Calcium [Mass/Vol] 9.2 mg/dL Normal 8.5 - 10.1 [facility] Comment on above: Performed By: #### 2 14867 #### [facility],[address] [place] [address]99 Chloride [Moles/Vol] 100 mmol/L Normal 98 - 107 [facility] Comment on above: Performed By: #### 2 17702 #### [facility],[address] [place] [address]226 CMP with eGFR Normal [facility] Comment on above: Result Comment: COMP REHENSIVE METABOLIC PANEL Performed By: #### 2 62389 #### [facility],[address] [place] [address]441 CO2 [Moles/Vol] 29.0 mmol/L Normal 21.0 - 32.0 [facility] Comment on above: Performed By: #### 2 22637 #### [facility],[address] [place] [address]49 Creatinine [Mass/Vol] 0.83 mg/dL Normal 0.55 - 1.02 [facility] Comment on above: Performed By: #### 2 16150 #### [facility],[address] [place] [address]5565 GFR/1.73 sq M.predicted among non-blacks MDRD (S/P/Bld) [Vol rate/Area] mL/min/{1.73_m2} Normal 60 - 999 [facility] Comment on above: Performed By: #### 2 64585 #### [facility],[address] [place] [address] Result Comment: ACCO RDING TO THE NATIONAL KIDNEY DISEASE EDUCATION PROGRAM(NKDE), A NORMAL eGFR IS A VALUE GREATER THAN OR EQUAL TO 60 ML/MIN/1.73 SQ METERS. CHRONIC KIDNEY DISEASE: <60mL/MIN/1.73 SQ METERS KIDNEY FAILURE: <15mL/MIN/1.73 SQ METERS THIS TEST SHOULD ONLY BE USED FOR PATIENTS 18 YEARS OF AGE AND OLDER. Globulin (S) [Mass/Vol] 3.3 g/dL Normal 1.5 - 3.8 [facility] Comment on above: Performed By: #### 2 38832 #### [address] [address] Glucose [Mass/Vol] 87 mg/dL Normal 74 - 106 [facility] Comment on above: Performed By: #### 2 26437 #### [facility],[address] [place] [address] Potassium [Moles/Vol] 4.4 mmol/L Normal 3.5 - 5.1 [facility] Comment on above: Performed By: #### 2 12883 #### [facility],[address] [place] [address] 73582 Protein [Mass/Vol] 7.2 g/dL Normal 6.4 - 8.2 [facility] Comment on above: Performed By: #### 2 48676 #### [facility],[address] [place] [address]142 Sodium [Moles/Vol] 139 mmol/L Normal 136 - 145 [facility] Comment on above: Performed By: #### 2 73400 #### [facility],[address] [place] [address]6456 Urea nitrogen [Mass/Vol] 11 mg/dL Normal 7 - 18 [facility] Comment on above: Performed By: #### 2 67876 #### [facility],[address] [place] [address]008 TSHon 09-02-2024 TSH Qn 29.06 m[IU]/L High 0.35 - 3.74 [facility] Comment on above: Performed By: #### 2 32543 #### [facility],[address] [place] [address] 13885 Radiation Oncology Visiton 10-28-2023 Radiation Oncology Visit [facility] [address] [place] [address] OFFICE VISIT Date of Service: 08/28/24 1016 MR#: [id number] Acct: [id number] Name: JENNIFER MALKI Rep #: [id number] : 1965 From: Andreas Miller DO Age/Sex: 58/F Location: [facility] Status: Signed Intake Vital Signs 02/26/24 10:47 05/21/24 10:48 08/28/24 10:17 Height 5 ft 4 in 5 ft 4 in 5 ft 4 in Weight: 127 lb 9 oz BMI 21.9 BP 142/85 H Blood Pressure Location Rt brachial Position Sitting Respiration 18 Pulse 68 Pulse Source Monitor Temp 97.4 F L Temperature Source Temporal Artery Pulse Oximetry (%) 98 Oxygen Delivery Method room air Intake Visit Reasons: 6 MONTH BREAST Is patient in pain?: No Allergies No Known Allergies Allergy (Verified 08/28/24 10:24) Medications ???Medication ???Instructions ???Recorded ???Confirmed ???Type levothyroxine 50 mcg tablet 50 mcg PO DAILY 04/22/19 08/28/24 History valacyclovir 1 gram tablet 1,000 mg PO .prn 08/08/21 08/28/24 History ascorbic acid (vitamin C) 1,000 mg 1 cap PO DAILY 08/22/21 08/28/24 History capsule,extended release cholecalciferol (vitamin D3) 50 50 mcg PO DAILY 08/22/21 08/28/24 History mcg (2,000 unit) capsule (Vitamin D3) cyanocobalamin (vitamin B-12) 25 50 mcg PO DAILY 08/22/21 08/28/24 History mcg tablet omega-3 fatty acids 1,000 mg PO DAILY 08/22/21 08/28/24 History zinc 50 mg capsule 50 mg PO DAILY 08/22/21 08/28/24 History calcium carbonate (Calcium 600) 600 mg PO DAILY 12/21/21 08/28/24 History magnesium 200 mg tablet 200 mg PO DAILY 12/21/21 08/28/24 History amlodipine 10 mg tablet 5 mg PO DAILY 05/21/24 08/28/24 History black seed PO 05/21/24 08/28/24 History PFSH PFSH Medical History Right hip pain Routine gynecological examination Osteopenia Screening for osteoporosis Dry skin dermatitis ER+ (estrogen receptor positive status) Encounter for education Wears contact lenses Wears glasses Cancer Alcohol use Former smoker History of edema Hypertension Breast cancer, left HTN (hypertension) Hypothyroidism Home Medications ???Medication ???Instructions ???Recorded ???Last Taken ???Type levothyroxine 50 mcg tablet 50 mcg PO DAILY 04/22/19 08/24/21 05:00 History valacyclovir 1 gram tablet 1,000 mg PO .prn 08/08/21 Unknown History ascorbic acid (vitamin C) 1,000 mg 1 cap PO DAILY 08/22/21 Unknown History capsule,extended release cholecalciferol (vitamin D3) 50 50 mcg PO DAILY 08/22/21 Unknown History mcg (2,000 unit) capsule (Vitamin D3) cyanocobalamin (vitamin B-12) 25 50 mcg PO DAILY 08/22/21 Unknown History mcg tablet omega-3 fatty acids 1,000 mg PO DAILY 08/22/21 Unknown History zinc 50 mg capsule 50 mg PO DAILY 08/22/21 Unknown History calcium carbonate (Calcium 600) 600 mg PO DAILY 12/21/21 Unknown History magnesium 200 mg tablet 200 mg PO DAILY 12/21/21 Unknown History amlodipine 10 mg tablet 5 mg PO DAILY 05/21/24 Unknown History black seed PO 05/21/24 Unknown History Allergy/AdvReac Type Severity Reaction Status Date / Time No Known Allergies Allergy Verified 08/28/24 10:24 Family History Mother Breast cancer Cancer skin Thyroid disorder Brother Cancer Surgical History History of lumpectomy ( 08/2021) History of hysteroscopy History of hysteroscopy S/P tubal ligation S/P ACL repair Social History current occupational status: employed 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 Smoking Status: Former smoker quit date: 08/04/21 Tobacco: How many years used: 10 alcohol intake: current alcohol intake frequency: 3 or more drinks per day substance use type: does not use caffeine: Yes Type: coffee Number of servings: 1 what type of physical activity do you participate in: other details: golfing seatbelt use: always additional social history: Spouse - Corey self employeed Diagnosis: Jennifer Malik is a 58-year-old female diagnosed with pathologic stage IA (pT1b pN0 (sn) Mx) grade 2 invasive ductal carcinoma (ER > 95%, MI 75%, HER-2 0 IHC) of the left breast status post screening mammogram, ultrasound, left breast biopsy (07/27/2021), bilateral breast MRI (08/16/2021), left breast lumpectomy and sentinel lymph node biopsy (08/24/2021), and evaluation by medical oncology with Oncotype score found to be 17. From 10/24/2021 ??? 11/02/2021 completed left breast APBI. History of Present Illness: 01/21/2021: Bilateral screening mammogram was performed. This demonstrated a mass in the mid left breast depth 3 o'clock position measuring 9 x 11 x 11 m (more content not included)... Normal [facility] Camera Supervisor Office Visit Reporton 05-21-2024 Camera Supervisor Office Visit Report [facility] [address], [address] [place] [address] OFFICE VISIT Date of Service: 05/21/24 MR#: [id number] Acct: [id number] Name: JENNIFER MALIK Rep #: [id number] : 1965 Provider: BRI Nelson Age/Sex: 58/F Location: [facility] Status: Signed Intake Vital Signs 02/26/24 10:47 04/02/24 13:46 05/21/24 10:36 05/21/24 10:48 Height 5 ft 4 in 5 ft 4 in 5 ft 4 in 5 ft 4 in Weight: 126 lb 125 lb 2 oz BMI 21.6 21.4 BP 134/80 H 175/98 H 143/76 H Blood Pressure Location Rt brachial Position Sitting Respiration 14 Pulse 60 Pulse Source Monitor Temp 98.4 F Temperature Source Temporal Artery Pulse Oximetry (%) 100 Oxygen Delivery Method room air Intake 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 Is patient in pain?: No Allergies No Known Allergies Allergy (Verified 05/21/24 10:38) Medications ???Medication ???Instructions ???Recorded ???Confirmed ???Type levothyroxine 50 mcg tablet 50 mcg PO DAILY 04/22/19 05/21/24 History valacyclovir 1 gram tablet 1,000 mg PO .prn 08/08/21 05/21/24 History ascorbic acid (vitamin C) 1,000 mg 1 cap PO DAILY 08/22/21 05/21/24 History capsule,extended release cholecalciferol (vitamin D3) 50 50 mcg PO DAILY 08/22/21 05/21/24 History mcg (2,000 unit) capsule (Vitamin D3) cyanocobalamin (vitamin B-12) 25 50 mcg PO DAILY 08/22/21 05/21/24 History mcg tablet omega-3 fatty acids 1,000 mg PO DAILY 08/22/21 05/21/24 History zinc 50 mg capsule 50 mg PO DAILY 08/22/21 05/21/24 History calcium carbonate (Calcium 600) 600 mg PO DAILY 12/21/21 05/21/24 History magnesium 200 mg tablet 200 mg PO DAILY 12/21/21 05/21/24 History amlodipine 10 mg tablet 5 mg PO DAILY 05/21/24 05/21/24 History black seed PO 05/21/24 History Is last menstrual period known: No Post menopausal: Yes (last menses may 2019) Date of menopause: 05/24/19 Patient : No : No Control Method: post menopausal [employer] [facility] [facility] Medical History (Updated 05/21/24 @ 16:25 by AIDAN StewartC) Right hip pain Routine gynecological examination Osteopenia Screening for osteoporosis Dry skin dermatitis ER+ (estrogen receptor positive status) Encounter for education Wears contact lenses Wears glasses Cancer Alcohol use Former smoker History of edema Hypertension Breast cancer, left HTN (hypertension) Hypothyroidism Surgical History History of lumpectomy ( 08/2021) History of hysteroscopy History of hysteroscopy S/P tubal ligation S/P ACL repair Family History (Updated 05/21/24 @ 10:43 by Taisha Sharma) Mother Breast cancer Cancer skin Thyroid disorder Brother Cancer Social History (Updated 05/21/24 @ 10:45 by Taisha Sharma) current occupational status: employed 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 She reports no issues or concerns today. She does have a history of breast cancer; management through Dr. Mcclellan and Lali Real CNP. Diagnosed July 2021. Last PAP: 03/2022 History of abnormal PAP: years ago; multiple normals since. Last mammogram: 02/2024; normal. History of abnormal mammogram: Yes; Left breast cancer; see above. Colon cancer screening: December 2021; normal; recommended 10 year follow up. Dexa: 09/2023 Other preventative health care screenings: Primary Care Doctor: Greta Bernal. Female Reproductive History Last Menstrual Period: 05/24/19 Associated symptoms: post menopausal. Questions: sexually active: Yes, dyspareunia: No and PCB: No Date of menopause: 05/24/19 Menopausal Symptoms: Yes hot flashes, Yes night sweats, No weight change, No mood changes, No difficulty concentrating, Yes sleep problems (comes and goes) and Yes change in libido Menopausal Treatment: No HRT, No Vaginal Estrogen, No Osphena, Yes OTC treatments and No prescription non-hormonal treatment ROS Const Constitutional: Reports night sweats; Denies body ache, fatigue, fever(s), headache(s) or malaise Eyes Eyes: Denies change in vision ENT ENT: Denies dizziness Resp Resp: Denies cough GI GI: Denies abdominal pain, constipation or nausea : Reports hot flashes; Denies nipple discharge, (more content not included)... Normal [facility] HIP COMPLETE RT MIN 2 VIEWS W/PELVISon 04-09-2024 HIP COMPLETE RT MIN 2 VIEWS W/PELVIS [place] [id number] [place] [address] Patient: JENNIFER MALIK Phone#: : 1965 Age: 58 Gender: F Pt. Type: Out Account: [id number] Location: [facility] Ordering: LALI REAL Exam Date: 04/09/2024/14:31 Family Phys: Charge Code: [id number] Physician: Osborne Order #: [id number] Dose#: PROCEDURE: X-RAY HIP RT COMPLETE MIN 2 VIEWS W/PELVIS COMPARISON: None. INDICATIONS: Pain in right hip. FINDINGS: BONES: Normal. No significant arthropathy or acute abnormality. SOFT TISSUES: Negative. No visible soft tissue swelling. EFFUSION: None visible. OTHER: Tubal ligation clips are present. CONCLUSION: 1. There is no evidence of acute abnormality. Dictated by: Anabelle Nance MD on 04/09/2024 at 15:34 Approved by: Anabelle Nance MD on 04/09/2024 at 15:35 Normal [facility] CBC W/Diff, Automatedon - Absolute Lymph 1.60 X10 3/uL Normal 0.83-4.51 [facility] Comment on above: Performed By: #### L 100.0100, L500.4050 #### [facility] [address] [place], [address] Absolute Neut 4.5 X10 3/uL Normal 2.0-7.7 [facility] Comment on above: Performed By: #### L 100.0100, L500.4050 #### [facility] [address] [place], [address] Basophils/100 WBC (Bld) 0.8 % Normal 0-1 [facility] Comment on above: Performed By: #### L 100.0100, L500.4050 #### [facility] [address] [place], [address] Eosinophils/100 WBC (Bld) 0.5 % Normal 0-5 [facility] Comment on above: Performed By: #### L 100.0100, L500.4050 #### [facility] [address] [place], [address] Erythrocyte distribution width (RBC) [Ratio] 12.6 % Normal 11.6-14.6 [facility] Comment on above: Performed By: #### L 100.0100, L500.4050 #### [facility] [address] [place], [address] Hematocrit (Bld) [Volume fraction] 37.8 % Normal 37-47 [facility] Comment on above: Performed By: #### L 100.0100, L500.4050 #### [facility] [address] [place], [address] Hemoglobin (Bld) [Mass/Vol] 12.6 g/dL Normal 12.0-15.0 [facility] Comment on above: Performed By: #### L 100.0100, L500.4050 #### [facility] [address] [place], [address] IG% 0.300 Normal 0.0-0.9 [facility] Comment on above: Result Comment: IG% - Immature Granulocytes (promyelocytes, myelocytes and metamyelocytes) > 1% indicates that a LEFT SHIFT is Present. Performed By: #### L 100.0100, L500.4050 #### [facility] [address] [place], [address] Lymphocytes/100 WBC (Bld) 24.1 % Normal 19-41 [facility] Comment on above: Performed By: #### L 100.0100, L500.4050 #### [facility] [address] [place], [address] MCH (RBC) [Entitic mass] 31.9 pg Normal 27.0-32.0 [facility] Comment on above: Performed By: #### L 100.0100, L500.4050 #### [facility] [address] [place], [address] MCHC (RBC) [Mass/Vol] 33.3 g/dL Normal 32-36 [facility] Comment on above: Performed By: #### L 100.0100, L500.4050 #### [facility] [address] [place], [address] MCV (RBC) [Entitic vol] 95.7 fL Normal 81-99 [facility] Comment on above: Performed By: #### L 100.0100, L500.4050 #### [facility] [address] [place], [address] Monocytes/100 WBC (Bld) 7.1 % Normal 0-10 [facility] Comment on above: Performed By: #### L 100.0100, L500.4050 #### [facility] [address] [place], [address] Neutrophils/100 WBC (Bld) 67.2 % Normal 47-70 [facility] Comment on above: Performed By: #### L 100.0100, L500.4050 #### [facility] [address] [place], [address] Nucleated RBC (Bld) [#/Vol] 0 10*3/uL Normal 0-5 [facility] Comment on above: Performed By: #### L 100.0100, L500.4050 #### [facility] [address] [place], [address] Platelet mean volume (Bld) [Entitic vol] 9.4 fL Normal 6.2-12.0 [facility] Comment on above: Performed By: #### L 100.0100, L500.4050 #### [facility] [address] [place], [address] Platelets (Bld) [#/Vol] 256 10*3/uL Normal 150-450 [facility] Comment on above: Performed By: #### L 100.0100, L500.4050 #### [facility] [address] [place], [address] RBC (Bld) [#/Vol] 3.95 10*6/uL Low 4.2-5.4 [facility] Comment on above: Performed By: #### L 100.0100, L500.4050 #### [facility] [address] [place], [address] RDW SD 44.5 fl High 35.1-43.9 [facility] Comment on above: Performed By: #### L 100.0100, L500.4050 #### [facility] [address] [place], [address] WBC (Bld) [#/Vol] 6.6 10*3/uL Normal 4.4-11.0 [facility] Comment on above: Performed By: #### L 100.0100, L500.4050 #### [facility] [address] [place], [address] Comprehensive Metabolic Prof [facility] 04-02-2024 Albumin [Mass/Vol] 4.2 g/dL Normal 3.2-5.0 [facility] Comment on above: Performed By: #### L 100.0100, L500.4050 #### [facility] [address] [place], [address] Albumin/Globulin [Mass ratio] 1.2 {ratio} Normal 0.9-2.4 [facility] Comment on above: Performed By: #### L 100.0100, L500.4050 #### [facility] [address] [place], [address] ALK P 89 U/L Normal 45-117 [facility] Comment on above: Performed By: #### L 100.0100, L500.4050 #### [facility] [address] [place], [address] ALT [Catalytic activity/Vol] 26 U/L Normal 13-56 [facility] Comment on above: Performed By: #### L 100.0100, L500.4050 #### [facility] [address] [place], [address] AST [Catalytic activity/Vol] 19 U/L Normal 15-37 [facility] Comment on above: Performed By: #### L 100.0100, L500.4050 #### [facility] [address] [place], [address] Bilirubin [Mass/Vol] 1.10 mg/dL High 0.20-1.00 [facility] Comment on above: Result Comment: For patients on eltrombopag therapy, use of Dimension [place] TBIL is not recommended. Performed By: #### L 100.0100, L500.4050 #### [facility] [address] [place], [address] BUN/CRE 15.1 RATIO Normal 10-20 [facility] Comment on above: Performed By: #### L 100.0100, L500.4050 #### [facility] [address] [place], [address] CA,Total 9.5 mg/dL Normal 8.5-10.1 [facility] Comment on above: Performed By: #### L 100.0100, L500.4050 #### [facility] [address] [place], [address] Chloride [Moles/Vol] 103 mmol/L Normal 98-107 [facility] Comment on above: Performed By: #### L 100.0100, L500.4050 #### [facility] [address] [place], [address] CO2 [Moles/Vol] 28.0 mmol/L Normal 21.0-32.0 [facility] Comment on above: Performed By: #### L 100.0100, L500.4050 #### [facility] [address] [place], [address] Creatinine [Mass/Vol] 0.79 mg/dL Normal 0.55-1.02 [facility] Comment on above: Result Comment: The validity of the calculated GFR GFRAA in patients over 70 years has not been determined. Clinical correlation is essential. Performed By: #### L 100.0100, L500.4050 #### [facility] [address] [place], [address] ECRCL 67.03 ml/min Normal [facility] Comment on above: Performed By: #### L 100.0100, L500.4050 #### [facility] [address] [place], [address] EST GFR - AA 96 mL/min Normal >60 [facility] Comment on above: Result Comment: Afri can Japanese GFR Calc Performed By: #### L 100.0100, L500.4050 #### [facility] [address] [place], [address] GAP 6 Normal 5-15 [facility] Comment on above: Performed By: #### L 100.0100, L500.4050 #### [facility] [address] [place], [address] GFR/1.73 sq M.predicted among non-blacks MDRD (S/P/Bld) [Vol rate/Area] 79 mL/min/{1.73_m2} Normal >60 [facility] Comment on above: Result Comment: Non- GFR Calc Performed By: #### L 100.0100, L500.4050 #### [facility] [address] [place], [address] Globulin (S) [Mass/Vol] 3.4 g/dL Normal 2.2-4.2 [facility] Comment on above: Performed By: #### L 100.0100, L500.4050 #### [facility] [address] [place], [address] Glucose [Mass/Vol] 93 mg/dL Normal 74-106 [facility] Comment on above: Performed By: #### L 100.0100, L500.4050 #### [facility] [address] [place], [address] Potassium [Moles/Vol] 3.7 mmol/L Normal 3.5-5.1 [facility] Comment on above: Performed By: #### L 100.0100, L500.4050 #### [facility] [address] [place], [address] Sodium [Moles/Vol] 137 mmol/L Normal 136-145 [facility] Comment on above: Performed By: #### L 100.0100, L500.4050 #### [facility] [address] [place], [address] T PROT 7.6 g/dL Normal 6.4-8.2 [facility] Comment on above: Performed By: #### L 100.0100, L500.4050 #### [facility] [address] [place], [address] Urea nitrogen [Mass/Vol] 12 mg/dL Normal 7-18 [facility] Comment on above: Performed By: #### L 100.0100, L500.4050 #### [facility] [address] [place], [address] Oncology Visit Reporton 03-09 Oncology Visit Report [facility] [address] [place] [address] OFFICE VISIT Date of Service: 04/02/24 1345 MR#: [id number] Acct: [id number] Name: JENNIFER MALIK Rep #: [id number] : 1965 From: Lali Real NP GARNETTER Axel Age/Sex: 58/F Location: [facility] Status: Signed HPI Subjective Date of Service 04/02/24 Chief Complaint Breast cancer on treatment History of Present Illness 58-year-old female with a positive family history of breast cancer (mother, niece maternal side, sister who opted for prophylactic bilateral mastectomy after repeated abnormalities prompting biopsies on the breasts but not confirmed cancer), most likely postmenopausal at breast cancer diagnosis in 2020 (last menstrual period was at age 53, started using hormonal therapy for menopausal symptoms at age 55 and stopped when she became aware of the cancer diagnosis in 2020) With such a history she was vigilant with screening mammographies. January 2021 category 3 mammogram and ultrasound and a 6 months follow-up was advised. July 2021 patient self palpated a painless lump in the left breast, a diagnostic mammogram was suspicious for malignancy. July 2021 ultrasound-guided biopsy left breast confirmed an invasive ductal cancer, ER 90%, MI 90%, HER-2 negative. August 2021 bilateral breasts MRI: No suspicious abnormalities were seen but breasts were dense. August 24, 2021 patient underwent left breast partial mastectomy with sentinel lymph node biopsy by ; pathology confirmed a grade 2 invasive ductal cancer ER positive over 95% MI +75% and HER- 2 negative, cancer measuring 1 cm in maximum diameter with DCIS, negative margin, no lymphovascular invasion and 3 sentinel lymph nodes were negative for metastatic cancer. Oncotype DX score 17 with no significant benefit from systemic chemotherapy. Treatment summary and response: August 2021 left partial mastectomy with sentinel lymph node. October 2021 adjuvant radiation therapy 2850 cGy in 5 fractions. October 2021 systemic adjuvant hormonal therapy based on Oncotype DX score was recommended by Dr. Feng. Initially declined therapy due to concerns about side effects then requested a second opinion December 2021 and consented to therapy started in January 2022 with anastrozole, developed pruritus in April 2022 stopped and switched to letrozole September 2022. September 2022 through January 15, 2023-letrozole (discontinued per patient due to musculoskeletal pain) February 01, 2023???February 20, 2023 tamoxifen (discontinued per patient due to bilateral lower extremity fluid retention) February 2023- June 04, 2023 exemestane (discontinued per patient d/t bilateral knee pain) Interval History The patient is presenting to clinic for a planned 6 month follow up. Concerns today include right hip pain. Motions to the anterior portion of her hip. Pain is intermittent, radiates down right thigh. Typically occurs with weight bearing movements but not always. Unable to rate pain or provide an estimate r/t how long pain has been present. Specifically denies loss, headaches, chest pain, palpitations, cough, shortness of breath, abdominal pain, changes in her bowel habits, swelling or pain of her extremities. Further denies any changes in her breasts during self-exam. [facility] Medical History Routine gynecological examination Osteopenia Screening for osteoporosis Dry skin dermatitis ER+ (estrogen receptor positive status) Encounter for education Wears contact lenses Wears glasses Cancer Alcohol use Former smoker History of edema Hypertension Breast cancer, left HTN (hypertension) Hypothyroidism Surgical History History of lumpectomy ( 08/2021) History of hysteroscopy History of hysteroscopy S/P tubal ligation S/P ACL repair Family History Mother Breast cancer Cancer skin Thyroid disorder Social History Smoking Status: Former smoker quit date: 08/04/21 Tobacco: How many years used: 10 alcohol intake: current alcohol intake frequency: 3 or more drinks per day substance use type: does not use caffeine: Yes Type: coffee Number of servings: 1 what type of physical activity do you participate in: other details: golfing ROS ROS Narrative Negative except as documented in the interval HPI Intake Vital Signs 10/10/23 13:49 04/02/24 13:46 Height 5 ft 4 in 5 ft 4 in Weight: 126 lb BMI 21.6 BP 134/80 H Blood Pressure Location Rt brachial Position Sitting Respiration 14 Pulse 60 Pulse Source Monitor Temp 98.4 F Temperature Source Temporal Artery Pulse Oximetry (%) 100 Oxygen Delivery (more content not included)... Normal [facility] No Panel Informationon 12-21 Follicle Stimulating Hormone 69.5 mIU/mL [facility] Comment on above: NORMAL REFERENCE RAN GES FEMALE FOLLICULAR 2.3 - 12.6 mIU/mL MID-CYCLE PEAK 5.2 - 17.5 mIU/mL LUTEAL 1.7 - 12.9 mIU/mL POST-MENOPAUSAL ON MHT 5.9 - 72.8 mIU/mL NOT ON MHT 12.7 - 132.2 mlU/mL MALE 0.7 - 10.8 mIU/mL Luteinizing Hormone 47.0 mIU/mL [facility] Comment on above: NORMAL REFERENCE RAN GES FEMALE FOLLICULAR 1.9 - 26.2 mIU/mL MID-CYCLE PEAK 22.8 - 76.1 mIU/mL LUTEAL 0.6 - 16.6 mIU/mL POST-MENOPAUSAL ON MHT 1.1 - 52.4 mIU/mL NOT ON MHT 8.6 - 61.8 mIU/mL MALE 1.2 - 10.6 mIU/mL Miscellaneous Test Comment MAILED SPECIMEN [facility] Absolute lymphocyte counton 11-07-2021 Lymphocytes Auto (Unsp spec) [#/Vol] 1.17 10*3/uL 0.83-4.51 [facility] Work Phone: Basophil percentageon 2021 Basophils/100 WBC (Bld) 0.9 % 0-1 [facility] Work Phone: Bilirubin [Mass/Vol] 1.00 mg/dL 0.20-1.00 [facility] Work Phone: Comment on above: For patients on eltr ombopag therapy, use of Dimension [place] TBIL is not recommended. Chloride [Moles/Vol] 100 mmol/L 98-107 [facility] Work Phone: Eosinophils/100 WBC (Bld) 0.3 % 0-5 [facility] Work Phone: Glucose [Mass/Vol] 119 mg/dL 74-106 [facility] Work Phone: Comment on above: Fasting Glucose resu lt from 100 to 125 mg/dL suggests IMPAIRED HOMEOSTASIS per A.D.A. criteria. Neutrophils (Bld) [#/Vol] 6.1 10*3/uL 2.0-7.7 [facility] Work Phone: Neutrophils/100 WBC (Bld) 76.6 % 47-70 [facility] Work Phone: Potassium [Moles/Vol] 4.0 mmol/L 3.5-5.1 [facility] Work Phone: [phone] Protein [Mass/Vol] 8.4 g/dL 6.4-8.2 [facility] Work Phone: [phone] Sodium [Moles/Vol] 134 mmol/L 136-145 [facility] Work Phone: WBC (Bld) [#/Vol] 7.9 10*3/uL 4.4-11.0 [facility] Work Phone: Blood erythrocytes count (nu mber/volume)on 11-07-2021 RBC (Bld) [#/Vol] 4.13 10*6/uL 4.2-5.4 [facility] Work Phone: Blood hemoglobin measurement (mass/volume)on 11-07-2021 Hemoglobin (Bld) [Mass/Vol] 13.3 g/dL 12.0-15.0 [facility] Work Phone: Blood lymphocytes/100 leukoc yteson 11-07-2021 Lymphocytes/100 WBC (Bld) 14.8 % 19-41 [facility] Work Phone: Blood monocytes/100 leukocyt eson 11-07-2021 Monocytes/100 WBC (Bld) 7.1 % 0-10 [facility] Work Phone: Blood platelet mean volumeon 11-07-2021 Platelet mean volume (Bld) [Entitic vol] 9.4 fL 6.2-12.0 [facility] Work Phone: Determination of erythrocyte mean corpuscular volume (MCV)on 11-07-2021 MCV (RBC) [Entitic vol] 96.9 fL 81-99 [facility] Work Phone: [employer] mix RAST testo n 11-07-2021 LDH [Catalytic activity/Vol] 146 U/L 84-246 [facility] Hematocrit Auto (Bld) [Volum e fraction]on 11-07-2021 Hematocrit (Bld) [Volume fraction] 40.0 % 37-47 [facility] Work Phone: Laboratory - Chemistry and C hemistry - challengeon 11-07-2021 ALP [Catalytic activity/Vol] 96 U/L 45-117 [facility] Work Phone: ALT [Catalytic activity/Vol] 26 U/L 13-56 [facility] Work Phone: CO2 [Moles/Vol] 29.0 mmol/L 21.0-32.0 [facility] Work Phone: Globulin (S) [Mass/Vol] 3.9 g/dL 2.2-4.2 [facility] Work Phone: Urea nitrogen/Creatinine [Mass ratio] 14.4 mg/mg 10-20 [facility] Work Phone: Laboratory - Hematology and Cell countson 11-07-2021 Erythrocyte distribution width (RBC) [Entitic vol] 44.5 fL 35.1-43.9 [facility] Work Phone: Erythrocyte distribution width (RBC) [Ratio] 12.4 % 11.6-14.6 [facility] Work Phone: Immature granulocytes/100 WBC (Bld) 0.300 % 0.0-0.9 [facility] Work Phone: Comment on above: IG% - Immature Granu locytes (promyelocytes, myelocytes and metamyelocytes) > 1% indicates that a LEFT SHIFT is Present. MCH (RBC) [Entitic mass] 32.2 pg 27.0-32.0 [facility] Work Phone: Nucleated RBC/100 WBC (Bld) [Ratio] 0 % 0-5 [facility] Work Phone: MCHC Auto (RBC) [Mass/Vol]on 11-07-2021 MCHC (RBC) [Mass/Vol] 33.3 g/dL 32-36 [facility] Work Phone: No Panel Informationon 11-07 Estimated GFR (MDRD) Amer 101 mL/min >60 [facility] Work Phone: Comment on above: GFR Calc Estimated GFR (MDRD) Non-Af Amer 83 mL/min >60 [facility] Work Phone: Comment on above: Non- GFR Calc Platelets bldon 11-07-2021 Platelets (Bld) [#/Vol] 268 10*3/uL 150-450 [facility] Work Phone: Serum or plasma albumin karena urement (mass/volume)on 11-07-2021 Albumin [Mass/Vol] 4.5 g/dL 3.2-5.0 [facility] Work Phone: Serum or plasma albumin/glob ulin mass ratioon 11-07-2021 Albumin/Globulin [Mass ratio] 1.2 {ratio} 0.9-2.4 [facility] Work Phone: Serum or plasma calcium karena urement (mass/volume)on 11-07-2021 Calcium [Mass/Vol] 9.8 mg/dL 8.5-10.1 [facility] Work Phone: Serum or plasma creatinine m easurement (mass/volume)on 11-07-2021 Creatinine [Mass/Vol] 0.76 mg/dL 0.55-1.02 [facility] Work Phone: Comment on above: The validity of the calculated GFR & GFRAA in patients over 70 years has not been determined. Clinical correlation is essential. Serum or plasma urea nitroge n measurement (mass/volume)on 11-07-2021 Urea nitrogen [Mass/Vol] 11 mg/dL 7-18 [facility] Work Phone: Thin prep Papanicolaou smear with manual screeningon 11-07-2021 Thin prep Papanicolaou smear with manual screening 18 U/L 15-37 [facility] Work Phone: Thin prep Papanicolaou smear with manual screening 5 5-15 [facility] Work Phone: Thin prep Papanicolaou smear with manual screening 146 U/L 84-246 [facility] Work Phone: Final Surgical Pathology Rep [facility] 08-10-2021 Final Surgical Pathology Report . Pathology Reports Accession: Collected Date/Time: Received Date/Time: Pathologist: [id number] 07/27/2021 09:43 EDT 07/28/2021 09:43 EDT MD APRIL ARANDA Final Surgical Pathology Report CORRECTED REPORT: COMMENT: THE REQUISITION WAS ORIGINALLY DESIGNATED LEFT AXILLARY LYMPH NODE. PER COMMUNICATION WITH DR. RODNEY IN THE RADIOLOGY DEPARTMENT AT [facility] THE DIAGNOSIS HEADING, CLINICAL INFORMATION, AND SPECIMEN ARE CORRECTED BELOW. THERE IS NO CHANGE IN THE DIAGNOSIS. PREVIOUSLY REPORTED DIAGNOSIS HEADING LEFT AXILLA, CORE BIOPSY, CLINICAL INFORMATION ABNORMAL MAMMOGRAM (MILDLY THICKENED CORTEX, RETAINED FATTY ZAKI) AND SPECIMEN LEFT AXILLARY LYMPH NODE. DIAGNOSIS: LEFT BREAST, 2 O'CLOCK, CORE BIOPSY: INVASIVE DUCTAL CARCINOMA. NUCLEAR GRADE 2. NO LYMPH NODE IDENTIFIED. ESTROGEN RECEPTOR: MODERATELY POSITIVE (90%) PROGESTERONE RECEPTOR: MODERATELY POSITIVE (90%) HER 2/hero: NEGATIVE (0) COMMENT: [facility] - [id number] CLINICAL INFORMATION: ABNORMAL MAMMOGRAM SPECIMEN: A LEFT BREAST 2 O'CLOCK POSITION NEW PALPABLE MASS WITH ABNORMAL MAMMOGRAM AND ULTRASOUND GROSS DESCRIPTION: A. Received in formalin, labeled with the patients name, Case #[id number], and left axillary lymph node 6 yellow-white cores of soft tissue, 0.3 -1.5 cm in length TS-1 Time removed from patient: 1040 Time placed in formalin: 1041 Cold ischemic time: is within the parameters of ASCO/CAP guidelines Total fixation time: is within the parameters of ASCO/CAP guidelines (less than 6 hours or greater than 72 hours) Fixative: 10% neutral buffered formalin Dictated by ORACIO BARBOZA MICROSCOPIC DESCRIPTION: Slides reviewed. Sample Adequate For Analysis: Yes Control Results: External (high, low-level, negative protein expression) and internal controls perform as expected. Pathology Reports Accession: Collected Date/Time: Received Date/Time: Pathologist: [id number] 07/27/2021 09:43 EDT 07/28/2021 09:43 EDT MD APRIL ARANDA MICROSCOPIC DESCRIPTION: Antibody Clone: Confirm Anti-ER (SP1-Rabbit Monoclonal Antibody) is a trademark of [employer]. Pathway Her2 (Clone 4B5) Rabbit Monoclonal Antibody is a trademark of [employer]. Scores of 0-1+ indicate a negative test. Scores of 2+ are Equivocal. 3+ indicate a positive test. Confirm Anti-MI (1E2) is a trademark of [employer]. ER/MI A. Scoring results are as follows: 0 - < 1 % Negative 1-10% Weak Positive 11-50% Moderately Positive > 50 Strongly Positive B. Her 2 Hero by IHC Score Result Staining Pattern in Tumor Cells Interpretation Her2 Immunohistochemistry Score 0: no stain or faint incomplete membrane stain in not more than 10% within the cells. Score 1+: weak and incomplete membrane staining in more than 10% of the tumor surface. Score 2+: complete intense membrane staining in not more than 10% of the invasive tumor cells or weak/moderate heterogeneous incomplete staining in more than 10% of the invasive tumor cells. Score 3+: strong complete homogenous membrane staining in more than 10% of the invasive tumor cells. ADDITIONAL DIAGNOSTIC CODES: 3394F, 3395F x2 Electronically Signed by Pathology Report verified by [facility] Electronically signed by APRIL ARANDA MD Sign out Date: 08/10/2021 08:59 Performing Lab: [facility], [address] [place] [address] ([place]) Comment on above: Performed By: #### S PFR #### [place] [id number] Non-Marketing Developer Cytology Reporton Non-Marketing Developer Cytology Report . Pathology Reports Accession: Collected Date/Time: Received Date/Time: Pathologist: [id number] 07/27/2021 07:50 EDT 07/28/2021 07:52 EDT MILAD DAVIS MD Non-Marketing Developer Cytology Report CORRECTED REPORT: CORRECTED REPORT COMMENT (08-09-21): THE REQUISITION WAS ORIGINALLY DESIGNATED LEFT BREAST MASS AND THE CLINICAL INFORMATION NEW PALPABLE MASS WITH ABNORMAL MAMMO AND U/S LEFT BREAST 2 O'OCLOCK POSITION. PER COMMUNICATION WITH DR. RODNEY IN THE RADIOLOGY DEPARTMENT THE CLINICAL INFORMATION AND SPECIMEN ARE CORRECTED BELOW. THERE IS NO CHANGE IN THE DIAGNOSIS. CLINICAL INFORMATION: ABNORMAL MAMMO (MILDLY THICKENED CORTEX, RETAINED FATTY ZAKI) DIAGNOSIS: NON DIAGNOSTIC SPECIMEN No breast epithelial cells present. Specimen consists mostly of blood and mature lymphoid cells. SPECIMEN: LEFT AXILLARY LYMPH NODE GROSS DESCRIPTION: # of Smears: 8 Electronically Signed by Pathology report verified by [facility] Screened by: GL MI,RM,MI Electronically signed by MILAD DAVIS Sign-Out Date: 08/09/2021 12:35 Performing Lab: [address] ([place]) Comment on above: Performed By: #### N GCR #### [place] [address] COMPREHENSIVE METABOLIC PANE Jose 01-22-2021 Albumin [Mass/Vol] 4.6 g/dL Normal 3.6-5.1 [facility] Comment on above: Performed By: #### 7 600, 63954 #### [facility] [address] [address] Route Service Manager: Yonny Vides MD Albumin/Globulin [Mass ratio] 1.9 {ratio} Normal 1.0-2.5 [facility] Comment on above: Performed By: #### 7 600, 86874 #### [facility] [address] [place] [address] Route Service Manager: Yonny Vides MD ALP [Catalytic activity/Vol] 89 U/L Normal 37-153 [facility] Comment on above: Performed By: #### 7 600, 25577 #### [facility] of [place] [address] Route Service Manager: Yonny Vides MD ALT [Catalytic activity/Vol] 14 U/L Normal 6-29 [facility] Comment on above: Performed By: #### 7 600, 16759 #### [facility] of [address], [address] [place] [address] Route Service Manager: Yonny Vides MD AST [Catalytic activity/Vol] 17 U/L Normal 10-35 [facility] Comment on above: Performed By: #### 7 600, 58533 #### [facility] of [place] [address] Route Service Manager: Yonny Vides MD Bilirubin [Mass/Vol] 0.9 mg/dL Normal 0.2-1.2 [facility] Comment on above: Performed By: #### 7 600, 09295 #### [facility] of [place] [address] Route Service Manager: Yonny Vides MD BUN/CREATININE RATIO NOT APPLICABLE Normal 6-22 [facility] Comment on above: Performed By: #### 7 600, 23261 #### [facility] of [address], [address] [place] [address] Route Service Manager: oYnny iVdes MD Calcium [Mass/Vol] 9.6 mg/dL Normal 8.6-10.4 [facility] Comment on above: Performed By: #### 7 600, 70412 #### [facility] of [place] [address] Route Service Manager: Yonny Vides MD Chloride [Moles/Vol] 101 mmol/L Normal 98-110 [facility] Comment on above: Performed By: #### 7 600, 36050 #### [facility] of [place] [address] Route Service Manager: Yonny Vides MD CO2 [Moles/Vol] 28 mmol/L Normal 20-32 [facility] Comment on above: Performed By: #### 7 600, 36517 #### [facility] [place] [address] Route Service Manager: Yonny Vides MD Creatinine [Mass/Vol] 0.76 mg/dL Normal 0.50-1.[address] [facility] Comment on above: Result Comment: For patients >49 years of age, the reference limit for Creatinine is approximately 13% higher for people identified as -Japanese. Performed By: #### 7 600, 80925 #### [facility] [place] [address] Route Service Manager: Yonny Vides MD eGFR NON-AFR. MOZAMBICAN 88 mL/min/1.73m2 Normal > OR = 60 [facility] Comment on above: Performed By: #### 7 600, 91312 #### [facility] [place] [address] Route Service Manager: Yonny Vides MD GFR/1.73 sq M.predicted among blacks MDRD (S/P/Bld) [Vol rate/Area] 102 mL/min/{1.73_m2} Normal > OR = 60 [facility] Comment on above: Performed By: #### 7 600, 62227 #### [facility] [place] [address] Route Service Manager: Yonny Vides MD Globulin (S) [Mass/Vol] 2.4 g/dL Normal 1.9-3.7 [facility] Comment on above: Performed By: #### 7 600, 33394 #### [facility] of [place] [address] Route Service Manager: Yonny Vides MD Glucose [Mass/Vol] 93 mg/dL Normal 65-99 [facility] Comment on above: Result Comment: Fasting reference interval Performed By: #### 7 600, 62457 #### [facility] of [address], [address] [place] [address] Route Service Manager: Yonny Vides MD Potassium [Moles/Vol] 4.2 mmol/L Normal 3.5-5.3 [facility] Comment on above: Performed By: #### 7 600, 73608 #### [facility] of [place] [address] Route Service Manager: Yonny Vides MD Protein [Mass/Vol] 7.0 g/dL Normal 6.1-8.1 [facility] Comment on above: Performed By: #### 7 600, 83744 #### [facility] of [address], [address] [place] [address] Route Service Manager: Yonny Vides MD Sodium [Moles/Vol] 138 mmol/L Normal 135-146 [facility] Comment on above: Performed By: #### 7 600, 19210 #### [facility] of [place] [address] Route Service Manager: Yonny Vides MD Urea nitrogen [Mass/Vol] 9 mg/dL Normal 7-25 [facility] Comment on above: Performed By: #### 7 600, 02991 #### [facility] of [place] [address] Route Service Manager: Yonny Vides MD LIPID PANEL, [facility] 01-06 Cholesterol [Mass/Vol] 210 mg/dL High <200 [facility] Comment on above: Performed By: #### 7 600, 39322 #### [facility] of [place] [address] Route Service Manager: Yonny Vides MD Cholesterol in HDL [Mass/Vol] 97 mg/dL Normal > OR = 50 [facility] Comment on above: Performed By: #### 7 600, 43409 #### [facility] of [address], [address] [place] [address] Route Service Manager: Yonny Vides MD Cholesterol in LDL [Mass/Vol] 99 mg/dL Normal [facility] Comment on above: Result Comment: Refe rence range: <100 Desirable range <100 mg/dL for primary prevention; <70 mg/dL for patients with CHD or diabetic patients with > or = 2 CHD risk factors. LDL-C is now calculated using the Manpreet calculation, which is a validated novel method providing better accuracy than the Friedewald equation in the estimation of LDL-C. Omega SS et al. CECILY. 2013;310(19): 9230-9160 (http://education.Soapets.virtual tweens ltd/faq/UWH890) Performed By: #### 7 600, 90234 #### [facility] [address], [address] [place] [address] Route Service Manager: Yonny Vides MD Cholesterol.total/Farrah sterol in HDL [Mass ratio] 2.2 {ratio} Normal <5.0 [facility] Comment on above: Performed By: #### 7 600, 91454 #### [facility] [address], [address] [place] [address] Route Service Manager: Yonny Vides MD NON HDL CHOLESTEROL 113 mg/dL (calc) Normal <130 [facility] Comment on above: Result Comment: For patients with diabetes plus 1 major ASCVD risk factor, treating to a non-HDL-C goal of <100 mg/dL (LDL-C of <70 mg/dL) is considered a therapeutic option. Performed By: #### 7 600, 16728 #### [facility] [address], [address] [place] [address] Route Service Manager: Yonny Vides MD Triglyceride [Mass/Vol] 57 mg/dL Normal <150 [facility] Comment on above: Performed By: #### 7 600, 10148 #### [facility] [place] [address] Route Service Manager: Yonny Vides MD TSHon 11-23-2020 TSH Qn 1.84 m[IU]/L Normal [facility] Comment on above: Result Comment: Refe rence Range > or = 20 Years 0.40-4.50 Ranges First trimester 0.26-2.66 Second trimester 0.55-2.73 Third trimester 0.43-2.91 Performed By: #### 8 99 #### [facility] [address] [place] [address], [address] [place] [address] Route Service Manager: Yonny Vides MD Vital Signs Date Time Vital Sign Value Performing Clinician Mary hernandez 03-18-2025 09:35-0400 Body height 162.56 cm [employer] Work Phone: [facility] 03-18-2025 09:35-0400 Body mass index (BMI) [Ratio] 21.8 kg/m2 [facility] PA-C Work Phone: [facility] 03-18-2025 09:35-0400 Body temperature 98.2 [degF] [employer] Work Phone: [facility] 03-18-2025 09:35-0400 Body weight 57.77 kg [employer] Work Phone: [facility] 03-18-2025 09:35-0400 Diastolic blood pressure 86 mm[Hg] [facility] PA-C Work Phone: [facility] 03-18-2025 09:35-0400 Heart rate 58 /min [employer] Work Phone: [facility] 03-18-2025 09:35-0400 Respiratory rate 18 /min [employer] Work Phone: [facility] 03-18-2025 09:35-0400 SaO2% (BldA) [Mass fraction] 100 % [facility] PA-C Work Phone: [facility] 03-18-2025 09:35-0400 Systolic blood pressure 144 mm[Hg] [facility] PA-C Work Phone: [facility] 10-28-2024 11:38-0500 Body height 162.56 cm [employer] Work Phone: [facility] 10-28-2024 11:38-0500 Body mass index (BMI) [Ratio] 21.9 kg/m2 [facility] PA-C Work Phone: [facility] 10-28-2024 11:38-0500 Body temperature 98 [degF] [facility] [place] PA-C Work Phone: [facility] 10-28-2024 11:38-0500 Body weight 58.05 kg [facility] PA[facility]C Work Phone: [facility] 10-28-2024 11:38-0500 Diastolic blood pressure 83 mm[Hg] [facility] PA[facility]C Work Phone: [facility] 10-28-2024 11:38-0500 Heart rate 74 /min [facility] PA[facility]C Work Phone: [facility] 10-28-2024 11:38-0500 Respiratory rate 16 /min [facility] PA[facility] Work Phone: [facility] 10-28-2024 11:38-0500 SaO2% (BldA) [Mass fraction] 95 % [facility] [place] PA-C Work Phone: [facility] 10-28-2024 11:38-0500 Systolic blood pressure 147 mm[Hg] [facility] PA[facility]C Work Phone: [facility] 06-26-2023 10:23-0400 Body mass index (BMI) [Ratio] 21.5 kg/m2 PA-C [facility] PA Work Phone: [facility] 06-26-2023 10:23-0400 Body temperature 97.8 [degF] PA-C [facility] PA Work Phone: [facility] 06-26-2023 10:23-0400 Body weight 56.89 kg PA-C [facility] PA Work Phone: [facility] 06-26-2023 10:23-0400 Diastolic blood pressure 95 mm[Hg] PA-C [facility] [place] PA Work Phone: [facility] 06-26-2023 10:23-0400 Heart rate 67 /min PA-C [facility] [place] PA Work Phone: [facility] 06-26-2023 10:23-0400 Respiratory rate 16 /min PA-C [facility] [place] PA Work Phone: [facility] 06-26-2023 10:23-0400 SaO2% (BldA) [Mass fraction] 98 % PA-C [facility] [place] PA Work Phone: [facility] 06-26-2023 10:23-0400 Systolic blood pressure 154 mm[Hg] PA-C [facility] [place] PA Work Phone: [facility] 02-01-2023 11:05-0400 Body height 163.83 cm PA-C [facility] PA Work Phone: [facility] 02-01-2023 11:05-0400 Body mass index (BMI) [Ratio] 21.4 kg/m2 PA-C [facility] [place] PA Work Phone: [facility] 02-01-2023 11:05-0400 Body temperature 97 [degF] PA-C [facility] [place] PA Work Phone: [facility] 02-01-2023 11:05-0400 Body weight 57.4 kg PA-C [facility] [place] PA Work Phone: [facility] 02-01-2023 11:05-0400 Diastolic blood pressure 84 mm[Hg] PA-C [facility] [place] PA Work Phone: [facility] 02-01-2023 11:05-0400 Heart rate 53 /min PA-C [facility] [place] PA Work Phone: [facility] 02-01-2023 11:05-0400 Respiratory rate 16 /min PA-C [facility] [place] PA Work Phone: [facility] 02-01-2023 11:05-0400 SaO2% (BldA) [Mass fraction] 100 % PA-C [facility] [place] PA Work Phone: [facility] 02-01-2023 11:05-0400 Systolic blood pressure 164 mm[Hg] PA-C [facility] [place] PA Work Phone: [facility] 10-31-2022 11:01-0500 Body mass index (BMI) [Ratio] 22.2 kg/m2 PA-C [facility] PA Work Phone: [facility] 10-31-2022 11:01-0500 Body temperature 97.2 [degF] PA-C [facility] [place] PA Work Phone: [facility] 10-31-2022 11:01-0500 Body weight 59.67 kg PA-C [facility] PA Work Phone: [facility] 10-31-2022 11:01-0500 Diastolic blood pressure 80 mm[Hg] PA-C [facility] PA Work Phone: [facility] 10-31-2022 11:01-0500 Heart rate 67 /min PA-C [facility] [place] PA Work Phone: [facility] 10-31-2022 11:01-0500 Respiratory rate 16 /min PA-C [facility] PA Work Phone: [facility] 10-31-2022 11:01-0500 SaO2% (BldA) [Mass fraction] 96 % PA-C [facility] [place] PA Work Phone: [facility] 10-31-2022 11:01-0500 Systolic blood pressure 136 mm[Hg] PA-C [facility] [place] PA Work Phone: [facility] 10-31-2022 10:40-0500 Body mass index (BMI) [Ratio] 22.2 kg/m2 PA-C [facility] [place] PA Work Phone: [facility] 10-31-2022 10:40-0500 Body temperature 97.2 [degF] PA-C [facility] PA Work Phone: [facility] 10-31-2022 10:40-0500 Body weight 59.67 kg PA-C [facility] PA Work Phone: [facility] 10-31-2022 10:40-0500 Diastolic blood pressure 80 mm[Hg] PA-C [facility] PA Work Phone: [facility] 10-31-2022 10:40-0500 Heart rate 67 /min PA-C [facility] PA Work Phone: [facility] 10-31-2022 10:40-0500 Respiratory rate 16 /min PA-C CUPS PA Work Phone: [facility] 10-31-2022 10:40-0500 SaO2% (BldA) [Mass fraction] 96 % PA-C [facility] PA Work Phone: [facility] 10-31-2022 10:40-0500 Systolic blood pressure 136 mm[Hg] PA-C CUPS PA Work Phone: [facility] 01-12-2022 10:17-0400 Body height 163.83 cm PA-C [facility] PA Work Phone: [facility] Work Phone: 01-12-2022 10:17-0400 Body mass index (BMI) [Ratio] 21.7 kg/m2 PA-C [facility] Work Phone: [facility] Work Phone: 01-12-2022 10:17-0400 Body temperature 97.9 [degF] PA-C [facility] Work Phone: [facility] Work Phone: 01-12-2022 10:17-0400 Body weight 58.17 kg PA-C [facility]PS PA Work Phone: [facility] Work Phone: 01-12-2022 10:17-0400 Diastolic blood pressure 72 mm[Hg] PA-C [facility] Work Phone: [facility] Work Phone: 01-12-2022 10:17-0400 Heart rate 58 /min PA-C [facility] Work Phone: [facility] Work Phone: 01-12-2022 10:17-0400 Respiratory rate 17 /min PA-C [facility] Work Phone: [facility] Work Phone: 01-12-2022 10:17-0400 SaO2% (BldA) [Mass fraction] 100 % PA-C [facility] PA Work Phone: [facility] Work Phone: 01-12-2022 10:17-0400 Systolic blood pressure 127 mm[Hg] PA-C [facility] PA Work Phone: [facility] Work Phone: 01-12-2022 10:17-0400 Body height 163.83 cm PA-C [facility] PA Work Phone: [facility] Work Phone: 01-12-2022 10:17-0400 Body mass index (BMI) [Ratio] 21.7 kg/m2 PA-C [facility] PA Work Phone: [facility] Work Phone: 01-12-2022 10:17-0400 Body temperature 97.9 [degF] PA-C [facility] PA Work Phone: [facility] Work Phone: 01-12-2022 10:17-0400 Body weight 58.17 kg PA-C [facility] PA Work Phone: [facility] Work Phone: 01-12-2022 10:17-0400 Diastolic blood pressure 72 mm[Hg] PA-C [facility] [place] PA Work Phone: [facility] Work Phone: 01-12-2022 10:17-0400 Heart rate 58 /min PA-C [facility] Work Phone: [facility] Work Phone: 01-12-2022 10:17-0400 Respiratory rate 17 /min PA-C [facility] [place] PA Work Phone: [facility] Work Phone: 01-12-2022 10:17-0400 SaO2% (BldA) [Mass fraction] 100 % PA-C [facility] Work Phone: [facility] Work Phone: 01-12-2022 10:17-0400 Systolic blood pressure 127 mm[Hg] PA-C [facility] Work Phone: [facility] Work Phone: 01-02-2022 09:51-0400 Body mass index (BMI) [Ratio] 21.6 kg/m2 PA-C [facility] Work Phone: [facility] Work Phone: 01-02-2022 09:51-0400 Body temperature 97.8 [degF] PA-C [facility] Work Phone: [facility] Work Phone: 01-02-2022 09:51-0400 Body weight 58.08 kg PA-C [facility] Work Phone: [facility] Work Phone: 01-02-2022 09:51-0400 Diastolic blood pressure 71 mm[Hg] PA-C [facility] Work Phone: [facility] Work Phone: 01-02-2022 09:51-0400 Heart rate 71 /min PA-C [facility] [place] PA Work Phone: [facility] Work Phone: 01-02-2022 09:51-0400 Respiratory rate 16 /min PA-C [facility] [place] PA Work Phone: [facility] Work Phone: 01-02-2022 09:51-0400 SaO2% (BldA) [Mass fraction] 99 % PA-C [facility] Work Phone: [facility] Work Phone: 01-02-2022 09:51-0400 Systolic blood pressure 117 mm[Hg] PA-C [facility] Work Phone: [facility] Work Phone: 01-02-2022 09:51-0400 Body mass index (BMI) [Ratio] 21.6 kg/m2 PA-C [facility] Work Phone: [facility] Work Phone: 01-02-2022 09:51-0400 Body temperature 97.8 [degF] PA-C [facility] Work Phone: [facility] Work Phone: 01-02-2022 09:51-0400 Body weight 58.08 kg PA-C [facility] Work Phone: [facility] Work Phone: 01-02-2022 09:51-0400 Diastolic blood pressure 71 mm[Hg] PA-C [facility] Work Phone: [facility] Work Phone: 01-02-2022 09:51-0400 Heart rate 71 /min PA-C [facility] PA Work Phone: [facility] Work Phone: 01-02-2022 09:51-0400 Respiratory rate 16 /min PA-C [facility] Work Phone: [facility] Work Phone: 01-02-2022 09:51-0400 SaO2% (BldA) [Mass fraction] 99 % PA-C [facility] Work Phone: [facility] Work Phone: 01-02-2022 09:51-0400 Systolic blood pressure 117 mm[Hg] PA-C [facility] Work Phone: [facility] Work Phone: 12-21-2021 10:03-0400 Body mass index (BMI) [Ratio] 21.4 kg/m2 PA-C [facility] PA Work Phone: [facility] Work Phone: 12-21-2021 10:03-0400 Body temperature 97.9 [degF] PA-C [facility] PA Work Phone: [facility] Work Phone: 12-21-2021 10:03-0400 Body weight 57.66 kg PA-C [facility] PA Work Phone: [facility] Work Phone: 12-21-2021 10:03-0400 Diastolic blood pressure 81 mm[Hg] PA-C [facility] PA Work Phone: [facility] Work Phone: 12-21-2021 10:03-0400 Heart rate 57 /min PA-C [facility] Work Phone: [facility] Work Phone: 12-21-2021 10:03-0400 Respiratory rate 14 /min PA-C [facility] PA Work Phone: [facility] Work Phone: 12-21-2021 10:03-0400 SaO2% (BldA) [Mass fraction] 99 % PA-C [facility] PA Work Phone: [facility] Work Phone: 12-21-2021 10:03-0400 Systolic blood pressure 138 mm[Hg] PA-C [facility] PA Work Phone: [facility] Work Phone: 12-21-2021 10:03-0400 Body mass index (BMI) [Ratio] 21.4 kg/m2 PA-C [facility] PA Work Phone: [facility] Work Phone: 12-21-2021 10:03-0400 Body temperature 97.9 [degF] PA-C [facility] PA Work Phone: [facility] Work Phone: 12-21-2021 10:03-0400 Body weight 57.66 kg PA-C [facility] PA Work Phone: [facility] Work Phone: 12-21-2021 10:03-0400 Diastolic blood pressure 81 mm[Hg] PA-C [facility] PA Work Phone: [facility] Work Phone: 12-21-2021 10:03-0400 Heart rate 57 /min PA-C [facility] PA Work Phone: [facility] Work Phone: 12-21-2021 10:03-0400 Respiratory rate 14 /min PA-C [facility] PA Work Phone: [facility] Work Phone: 12-21-2021 10:03-0400 SaO2% (BldA) [Mass fraction] 99 % PA-C [facility] Work Phone: [facility] Work Phone: 12-21-2021 10:03-0400 Systolic blood pressure 138 mm[Hg] PA-C [facility] [place] PA Work Phone: [facility] Work Phone: 11-29-2021 10:16-0500 Body temperature 97.9 [degF] PA-C [facility] [place] PA Work Phone: [facility] Work Phone: 11-29-2021 10:16-0500 Body weight 57.2 kg PA-C [facility] [place] PA Work Phone: [facility] Work Phone: 11-29-2021 10:16-0500 Diastolic blood pressure 79 mm[Hg] PA-C [facility] [place] PA Work Phone: [facility] Work Phone: 11-29-2021 10:16-0500 Heart rate 59 /min PA-C [facility] Work Phone: [facility] Work Phone: 11-29-2021 10:16-0500 Respiratory rate 14 /min PA-C [facility] Work Phone: [facility] Work Phone: 11-29-2021 10:16-0500 SaO2% (BldA) [Mass fraction] 99 % PA-C [facility] Work Phone: [facility] Work Phone: 11-29-2021 10:16-0500 Systolic blood pressure 122 mm[Hg] PA-C [facility] [place] PA Work Phone: [facility] Work Phone: 11-07-2021 10:05-0500 Body mass index (BMI) [Ratio] 21 kg/m2 PA-C [facility] PA Work Phone: [facility] Work Phone: 11-07-2021 10:05-0500 Body temperature 98.3 [degF] PA-C [facility] Work Phone: [facility] Work Phone: 11-07-2021 10:05-0500 Body weight 56.47 kg PA-C [facility] Work Phone: [facility] Work Phone: 11-07-2021 10:05-0500 Diastolic blood pressure 80 mm[Hg] PA-C [facility] Work Phone: [facility] Work Phone: 11-07-2021 10:05-0500 Heart rate 64 /min PA-C [facility] PA Work Phone: [facility] Work Phone: 11-07-2021 10:05-0500 Respiratory rate 15 /min PA-C [facility] PA Work Phone: [facility] Work Phone: 11-07-2021 10:05-0500 SaO2% (BldA) [Mass fraction] 97 % PA-C [facility] PA Work Phone: [facility] Work Phone: 11-07-2021 10:05-0500 Systolic blood pressure 134 mm[Hg] PA-C [facility] PA Work Phone: [facility] Work Phone: 10-26-2021 10:41-0500 Body temperature 98 [degF] PA-C [facility] Work Phone: [facility] Work Phone: 10-26-2021 10:41-0500 Body weight 57.29 kg PA-C [facility] [place] PA Work Phone: [facility] Work Phone: 10-26-2021 10:41-0500 Diastolic blood pressure 80 mm[Hg] PA-C [facility] PA Work Phone: [facility] Work Phone: 10-26-2021 10:41-0500 Heart rate 61 /min PA-C [facility] PA Work Phone: [facility] Work Phone: 10-26-2021 10:41-0500 Respiratory rate 14 /min PA-C [facility] PA Work Phone: [facility] Work Phone: 10-26-2021 10:41-0500 SaO2% (BldA) [Mass fraction] 100 % PA-C [facility] PA Work Phone: [facility] Work Phone: 10-26-2021 10:41-0500 Systolic blood pressure 140 mm[Hg] PA-C [facility] PA Work Phone: [facility] Work Phone: Encounters Encounter Date Encounter Type Care Provider Facility Start: 03-31-2025 ambulatory Lali Real GARNETTER Facil ity:[facility] Start: 03-18-2025 End: 03-18-2025 Patient encounter procedure Lali Real GARNETTER-C -[facility] Work Phone: Start: 03-18-2025 End: 03-18-2025 ambulatory CUPS PA-C Work Phone: [facility] Work Phone: Start: 02-18-2025 End: 02-18-2025 ambulatory CUPS PA-C Work Phone: [facility] Work Phone: Start: 02-18-2025 End: 02-18-[address] Andreas Miller DO -[facility]patient [facility] Work Phone: Start: 02-18-2025 End: 02-18-2025 ambulatory Andreas Miller Facility:[facility] Start: 01-15-2025 End: 01-15-2025 ambulatory [facility] Start: 11-26-2024 End: 11-26-2024 ambulatory [facility] Start: 11-26-2024 End: 11-26-2024 ambulatory [facility] Start: 10-28-2024 End: 10-28-[address] Abdoul Juan MD -[facility] Work Phone: Start: 10-28-2024 End: 10-28-2024 ambulatory [facility] PA Facility:[facility] Start: 10-28-[address] Bebeto Feng MD -[facility] Start: 09-02-2024 End: 09-02-2024 ambulatory [facility] Start: 08-28-2024 End: 08-28-2024 ambulatory Andreas Miller Facility:[facility] Start: 05-21-2024 End: 05-21-2024 ambulatory Mary Todd Facility:[facility] Start: 04-09-2024 End: 04-09-2024 ambulatory LALI Scanlon [facility] Start: 04-02-2024 End: 04-02-2024 ambulatory Greta Hills PA Facility:[facility] Start: 02-26-2024 Patient encounter status CUPS PA-C Work Phone: [facility] Start: 10-02-2023 End: 10-02-2023 ambulatory PA-C [facility] PA Work Phone: [facility] Work Phone: Start: 10-02-2023 End: 10-02-2023 Patient encounter procedure PA-C [facility] PA Work Phone: [facility]-Outpatient Bone Densitometry Work Phone: Start: 06-26-2023 End: 06-26-2023 Patient encounter procedure PA-C Greta Marcos PA Work Phone: [facility] Work Phone: Start: 02-13-2023 End: 02-13-2023 ambulatory PA-C Greta Marcos PA Work Phone: [facility] Work Phone: Start: 02-13-2023 End: 02-13-2023 Patient encounter procedure PA-C Greta Marcos PA Work Phone: [facility]-Outpatient Breast Imaging Start: 02-01-2023 End: 02-01-2023 Patient encounter procedure PA-C Greta Marcos PA Work Phone: [facility] Start: 10-31-2022 End: 10-31-2022 Patient encounter procedure PA-C Greta Marcos PA Work Phone: [facility] Start: 03-31-2022 End: 03-31-2022 Patient encounter procedure PA-C Greta Marcos PA Work Phone: [facility]-Laboratory, Specimen Start: 02-17-2022 End: 02-17-2022 Patient encounter procedure PA-C Greta Marcos PA Work Phone: [facility] Start: 02-07-2022 End: 02-07-2022 Patient encounter procedure PA-C Greta Marcos PA Work Phone: [facility]-Outpatient Breast Imaging Start: 01-12-2022 End: 01-12-2022 Patient encounter procedure PA-C Greta Marcos PA Work Phone: [facility] Start: 01-02-2022 End: 01-02-2022 Patient encounter procedure PA-C Greta Marcos PA Work Phone: [facility] Start: 12-21-2021 Registered Recurring ALYSA Marcos PA Work Phone: [facility] Start: 12-21-2021 End: 12-21-2021 Patient encounter procedure ALYSA Marcos PA Work Phone: [facility] Start: 12-12-2021 End: 12-12-2021 Patient encounter procedure PA-Michael Marcos PA Work Phone: [facility] Start: 11-29-2021 End: 11-29-2021 Patient encounter procedure JOVITA-Michael Marcos PA Work Phone: [facility] Start: 11-07-2021 End: 11-07-2021 Patient encounter procedure ALYSA Marcos PA Work Phone: [facility] Start: 11-02-2021 End: 11-02-2021 Patient encounter procedure PAAxel Marcos PA Work Phone: [facility] Start: 10-26-2021 End: 10-26-2021 Patient encounter procedure JOVITA-Michael Marcos PA Work Phone: [facility] Start: 10-24-2021 Non-patient / Non-visit PA-Michael Marcos PA Work Phone: [facility] Start: 10-20-2021 Non-patient / Non-visit PA-Michael Marcos PA Work Phone: [facility] Start: 10-19-2021 Non-patient / Non-visit PA-Michael Marcos PA Work Phone: [facility] Start: 10-17-2021 Non-patient / Non-visit PA-[facility] Procedures Date Procedure Procedure Detail Performing Clinician Start: 02-18-2025 Screening mammography K renard Marcos PA-C Work Phone: Start: 10-28-2024 Estimated creatinine clearance Gretala Marcos PA-C Work Phone: Start: 10-28-2024 Measurement of renal function Greta [place] ALYSA Work Phone: Comment on above: GFR Calc Start: 02-13-2023 Screening mammography P A-C Gretala HUSSEIN Work Phone: Start: 02-07-2022 Screening mammography P A-C Greta [place] JOVITA Work Phone: Plan of Treatment Date Care Activity Detail Author Start: 10-02-2023 Dual energy X-ray absorptiometry Dexa Bone Density Study [facility] CBC W Auto Different ial panel - Blood [facility] Work Phone: CBC W Auto Different ial panel - Blood [facility] NM Whole body Bone Views [facility] Path report.final Dx Spec [facility] Work Phone: [facility] Payers Date Payer Category Payer Self-pay [id number] 2021 Unknown [id number] 2011 Unknown SELF PAY INSURANCE [id number] [id number] 2011 Unknown [employer] [id number] 1965 Unknown [id number] 2.16.8 [id number] 1965 Unknown [id number] 2.16.8 [id number] 1965 Unknown [id number] 2.16.8 [id number] 1965 Unknown [id number] 2.16.8 [id number] 1965 Unknown [id number] 2.16.8 [id number] Unknown [id number] 2.16.8 [id number] Unknown [id number] 2.16.8 [id number] Unknown [id number] 2.16.8 [id number] Unknown [id number] 2.16.8 [id number] Unknown [id number] 2.16.8 [id number] Unknown [id number] 2.16.8 [id number] Unknown [id number] 2.16.8 [id number] Unknown [id number] 2.16.8 [id number] Social History Date Type Detail Facility Start: 12-12-2021 End: 03-15-2023 Tobacco smoking status NMIS Unknown if ever smoked [facility] Start: 04-22-2019 Cigarettes [facility] Start: 1965 Sex Assigned At Female [facility] Start: 05-21-2024 Tobacco smoking stat us NMIS Ex-smoker (finding) [facility] Medical Equipment Procedure Code Equipment Code Equipment Origin al Text Equipment Identifier Dates SUTURE,LIGA CLIP MED [id number] FDA Start: 08-24-2021 SUTURE,LIGA CLIP SM LT-100 FDA Start: 08-24-2021 SUTURE,LIGA CLIP SM LT-100 FDA Start: 08-24-2021 SUTURE,LIGA CLIP SM LT-100 FDA Start: 08-24-2021 SUTURE,LIGA CLIP MED [id number] FDA Start: 08-24-2021 SUTURE,LIGA CLIP SM LT-100 FDA Start: 08-24-2021 SUTURE,LIGA CLIP SM LT-100 FDA Start: 08-24-2021 SUTURE,LIGA CLIP SM LT-100 FDA Start: 08-24-2021 SUTURE,LIGA CLIP MED [id number] FDA Start: 08-24-2021 SUTURE,LIGA CLIP SM LT-100 FDA Start: 08-24-2021 SUTURE,LIGA CLIP SM LT-100 FDA Start: 08-24-2021 SUTURE,LIGA CLIP SM LT-100 FDA Start: 08-24-2021 SUTURE,LIGA CLIP MED LT200 FDA Start: 08-24-2021 SUTURE,LIGA CLIP SM LT-100 FDA Start: 08-24-2021 SUTURE,LIGA CLIP SM LT-100 FDA Start: 08-24-2021 SUTURE,LIGA CLIP SM LT-100 FDA Start: 08-24-2021 SUTURE,LIGA CLIP MED LT200 FDA Start: 08-24-2021 SUTURE,LIGA CLIP SM LT-100 FDA Start: 08-24-2021 SUTURE,LIGA CLIP SM LT-100 FDA Start: 08-24-2021 SUTURE,LIGA CLIP SM LT-100 FDA Start: 08-24-2021 SUTURE,LIGA CLIP MED LT200 FDA Start: 08-24-2021 SUTURE,LIGA CLIP SM LT-100 FDA Start: 08-24-2021 SUTURE,LIGA CLIP SM LT-100 FDA Start: 08-24-2021 SUTURE,LIGA CLIP SM LT-100 FDA Start: 08-24-2021 Progress note 03-18-2025 Note Date & Type Note Facility 03-18-[address] [facility] Progress note 03-18-2025 Note Date & Type Note Facility 03-18-2025 Progress note Note Date/Time March 18, 2025 10:25am [facility] [address] [address] OFFICE VISIT Date of Service: 03/18/25 0933 MR#: [id number] Acct: [id number] Name: JENNIFER MALIK Rep #: [id number] : 1965 From: Lali Fuller ch GARNETTER GARNETTER-C Age/Sex: 59/F Location: [facility] Status: Signed HPI Subjective Date of Service 03/18/25 Chief Complaint Breast cancer on treatment History of Present Illness 59-year-old female with a positive family history of breast cancer (mother, niece maternal side, sister who opted for prophylactic bilateral mastectomy after repeated abnormalities prompting biopsies on the breasts but not confirmedcancer), most likely postmenopausal at breast cancer diagnosis in 2020 (last menstrual period was at age 53, started using hormonal therapy for menopausal symptoms at age 55 and stopped when she became aware of the cancer diagnosis in 2020) With such a history she was vigilant with screening mammographies. January 2021 category 3 mammogram and ultrasound and a 6 months follow-up was advised. July 2021 patient self palpated a painless lump in the left breast, a diagnostic mammogram was suspicious for malignancy. July 2021 ultrasound-guided biopsy left breast confirmed an invasive ductal cancer, ER 90%, MI 90%, HER-2 negative. August 2021 bilateral breasts MRI: No suspicious abnormalities were seen but breasts were dense. August 24, 2021 patient underwent left breast partial mastectomy with sentinellymph node biopsy by Dr. Allen; pathology confirmed a grade 2 invasive ductal cancer ER positive over 95% MI +75% and HER-2 negative, cancer measuring 1 cm inmaximum diameter with DCIS, negative margin, no lymphovascular invasion and 3 sentinel lymph nodes were negative for metastatic cancer. Oncotype DX score 17 with no significant benefit from systemic chemotherapy. Treatment summary and response: August 2021 left partial mastectomy with sentinel lymph node. October 2021 adjuvant radiation therapy 2850 cGy in 5 fractions. October 2021 systemic adjuvant hormonal therapy based on Oncotype DX score was recommended by Dr. Feng but patient did not consent. After a second opinion in December 2021 she consented: Anastrozole January - April 2022 then stopped due to pruritus. Letrozole September 2022?January 2023 stopped due to musculoskeletal pains. Tamoxifen January 2023?February 2023 stopped due to lower extremities edema negative DVT. Exemestane February 2023?May 2023 stopped because of knee pain. Interval History The patient is presenting to clinic for a planned 6 month follow up. Underwent bilateral screening mammography on 02/18/25, BI RADS 1. Concerns today include bilat hip pain. Rates pain 3-4/10 intermittently. Only problematic when she has been sedentary for a long period of time then attempts to ambulate. Unsure of when pain began. Is not daily or worsening in terms of severity. Occasionally is painful at night. No other sites of bone pain. Specifically denies loss, headaches, chest pain, palpitations, cough, shortnessof breath, abdominal pain, changes in her bowel habits, swelling or pain of her extremities. Further denies any changes in her breasts during self-exam. [facility] Medical History Right hip pain Routine gynecological examination Osteopenia Screening for osteoporosis Dry skin dermatitis ER+ (estrogen receptor positive status) Encounter for education Wears contact lenses Wears glasses Cancer Alcohol use Former smoker History of edema Hypertension Breast cancer, left HTN (hypertension) Hypothyroidism Surgical History History of lumpectomy (~08/2021) History of hysteroscopy History of hysteroscopy S/P tubal ligation S/P ACL repair Family History Mother Breast cancer Cancer skin Thyroid disorder Brother Cancer Social History current occupational status: employed 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 Smoking Status: Former smoker quit date: 08/04/21 Tobacco: How many years used: 10 alcohol intake: current alcohol intake frequency: 3 or more drinks per day substance use type: does not use caffeine: Yes Type: coffee Number of servings: 1 what type of physical activity do you participate in: other details: golfing seatbelt use: always additional social history: Spouse - Corey self employeed Female Reproductive History Menstrual Date of menopause: 05/24/19 ROS ROS Narrative Negative except as documented in the interval HPI Intake Vital Signs 10/28/24 11:38 03/18/25 09:35 Height 5 ft 4 in 5 ft 4 in Weight: 128 lb 127 lb 6 oz BMI 21.9 21.8 BP 147/83 H 144/86 H Blood Pressure Location Lt brachial Lt brachial Position Sitting Sitting Respiration 16 18 Pulse 74 58 L Pulse Source Monitor Monitor Temp 98.0 F 98.2 F Temperature Source Temporal Artery Temporal Artery Pulse Oximetry (%) 95 100 Oxygen Delivery Method room air room air Intake Is patient in pain?: No Allergies No Known Allergies Allergy (Verified 03/18/25 09:52) Medications ?Medication ?Instructions ?Recorded ?Confirmed ?Type levothyroxine 50 mcg tablet 50 mcg PO DAILY 04/22/19 0 03/18/25 History valacyclovir 1 gram tablet 1,000 mg PO .prn 08/08/21 0 03/18/25 History ascorbic acid (vitamin C) 1,000 mg 1 cap PO DAILY 08/0803/18/25 History capsule,extended release cholecalciferol (vitamin D3) 50 50 mcg PO DAILY 03/18/25 History mcg (2,000 unit) capsule (Vitamin D3) cyanocobalamin (vitamin B-12) 25 50 mcg PO DAILY 08/2203/18/25 History mcg tablet omega-3 fatty acids 1,000 mg PO DAILY 08/22/21 0 03/18/25 History zinc 50 mg capsule 50 mg PO DAILY 08/22/2103/08 History calcium carbonate (Calcium 600) 600 mg PO DAILY 03/18/25 History magnesium 200 mg tablet 200 mg PO DAILY 12/21/2109/01 History amlodipine 10 mg tablet 5 mg PO DAILY 05/21/2403/18 History black seed PO 05/21/24 03/18/25 History Central Venous Access Central Venous Access: No Exam Physical Exam Narrative ECOG 0 Const alert, oriented x3 and no apparent distress General Appearance: comfortable HEENT normocephalic Eyes Eyes Narrative: wears glasses General Eye: normal appearance of both eyes Neck no lymphadenopathy Chest Chest Narrative: declined breast exam Resp normal respiratory effort and clear to auscultation bilaterally Cardio regular rate, regular rhythm, S1 normal heart sound and S2 normal heart sound GI normal to inspection, nondistended, normoactive bowel sounds and soft to palpation no CVA tenderness Back/Spine no thoracic nor lumbar tenderness Extremity no clubbing, cyanosis or edema and no calf tenderness Skin no rashes or lesions noted Neuro oriented x3, CN's II-XII intact bilaterally and moves all extremities Psych mental status grossly normal Attitude: calm and engaged Coding Level of Care Code Off vis,est,level 4 Exam Problem Focused Diagnoses Malignant neoplasm of upper-outer quadrant of left breast in female, estrogen receptor positive C50.412; Z17.0 Breast location: upper outer quadrant of breast Estrogen receptor status: positive Patient sex: female Assessment and Plan Assessment and Plan (1) Breast cancer, left: Status: Chronic Qualifiers: Breast location: upper outer quadrant of breast Estrogen receptor status: positive Patient sex: female Qualified Code(s): C50.412 - Malignant neoplasm of upper-outer quadrant of left female breast; Z17.0 - Estrogen receptor positive status [ER+] Orders: Orders Bone Scan Whole Body Today C50.412 - Malignant neoplasm of upper-outer quadrant of left female breast, M25.551 - Pain in right hip, M25.552 - Pain in left hip, Z17.0 - Estrogen receptor positive status [ER+] Plan 59-year-old female postmenopausal at diagnosis (last menstrual period was at age 53, started using hormonal replacement at age 55 and stopped with the cancer diagnosis) with stage IA (T1b, N0, M0) invasive ductal cancer of the left breast ER positive over 95% MI positive over 75% and HER-2 not overexpressed grade 2 and with Oncotype DX score of 17. Patient is status post a left partial mastectomy with sentinel lymph node biopsy August 2021 and adjuvant radiation therapy in October 2021. Adjuvant hormonal therapy was initially recommended by Dr. Feng in October 2021, second opinion confirmed same recommendations. Patient tried different hormonal therapies erratically between 2021 and 2022 then she stopped. She has a positive family history suspicious for genetic breast cancer with mother and niece (mother side) with breast cancers and his sister after multiple abnormal mammograms and biopsies who elected for prophylactic bilateral mastectomies. However, genetic testing in December 2021 showed no known pathogenic variants. Comorbid conditions: Hypertension, postmenopausal osteopenia (last bone density September 2021) lower extremities varicose veins and edema. She is an ex-smoker quit in 2020. Plan: 1. Patient was advised systemic adjuvant hormonal therapy for at least 5 years. She used hormonal therapy intermittently and erratically trying all different agents between 2021 through 2022 (see under HPI) since she stopped. 2. Genetic testing: Completed. With a positive family history advise starting screening with mammography 5 years younger than the youngest family member with breast cancer. 3. Lung cancer screening evaluation and annual noncontrast CT, she meets criteria but she declined screening. She quit smoking in 2020. 4. In addition to continued vitamin D and calcium supplementation, advised additional bone supportive therapy with either bisphosphonate or Prolia. Patient declined. 5. Bilat hip pain- description is consistent with likely degenerative changes (alk phos WNL), however given breast cancer history and non adherence to adjuvant endocrine therapy, will request bone scan r/o skeletal metastasis as potential cause. RTO 1-2 days after bone scan to review results. 03/18/25 1025 <Electronically signed by Lali christian GARNETTER GARNETTER-C> Date _ Lali Real GARNETTER GARNETTER-C Cosigner Signature: Date (if applicable) CC: ~ [place] [employer] Work Phone: Evaluation note 10-28-2024 Note Date & Type Note Facility 10-28-2024 Evaluation note Diagnosis Onset Date Resolution Breast cancer, left chronic Janua ry 2024 10:52am [facility] Work Phone: Evaluation note Note Date & Type Note Facility Evaluation note Diagnosis Onset Date Breast cancer, left acute Breast cancer, left acute Breast cancer, left acute Breast cancer, left acute Breast cancer, left acute Breast cancer, left acute Breast cancer, left acute Encounter for education acut e Breast cancer, left acute [facility] Work Phone: Evaluation note Note Date & Type Note Facility Evaluation note Diagnosis Onset Date Breast cancer, left acute Breast cancer, left acute Breast cancer, left acute Encounter for education acut e Breast cancer, left acute Breast cancer, left acute [facility] Work Phone: Evaluation note Note Date & Type Note Facility Evaluation note Diagnosis Onset Date Breast cancer, left chronic Breast cancer, left chronic Breast cancer, left chronic [facility] Work Phone: Evaluation note Note Date & Type Note Facility Evaluation note Diagnosis Onset Date Breast cancer, left chronic [facility] Work Phone: Evaluation note Note Date & Type Note Facility Evaluation note Diagnosis Onset Date Resolution Breast cancer, left chronic March 18, 2025 9:29am [facility] Work Phone: Reason for referral (narrative) Note Date & Type Note Facility Reason for referral (narrative) No reason for referral information available [facility] Work Phone: Summary Purpose Family History No Family History Records Found Relationship Condition Age at Onset Recorded Date/T kenzie mother Malignant neoplasm of breast Unknown Malignant neoplasm Unknown Disorder of thyroid Unknown Relationship Condition Age at Onset Recorded Date/T kenzie mother Malignant neoplasm of breast Unknown Malignant neoplasm Unknown Disorder of thyroid Unknown brother Malignant neoplasm Unknown Advance Directives No Advanced Directives Records Found Advance Directive Response Recorded Date/ Time Living Will No September 05 5:46pm Power of Die Cutter No September 05, 2021 5:46pm Advance Directive Response Recorded Date/ Time Living Will No September 05 4:46pm Power of Die Cutter No September 05, 2021 4:46pm Advance Directive Response Recorded Date/ Time Living Will No September 05 5:46pm Do you have a [facility] Power of Die Cutter? No September 05, 2021 5:46pm Chief Complaint and Reason for Visit Chief Complaint otv otv 6WKS LABS followup breast BREAST LUMPECTOMY WANTS 2ND OPINION BREAST CANCER BREAST CA CHEMO ED/REVIEW LABS F/U SCREENING Reason for Visit Breast cancer, left Breast cancer, left Breast cancer, left Breast cancer, left Breast cancer, left Breast cancer, left Breast cancer, left Encounter for education Breast cancer, left Chief Complaint BREAST LUMPECTOMY WANTS 2ND OPINION BREAST CANCER BREAST CA CHEMO ED/REVIEW LABS F/U SCREENING ROUTINE BREAST CHECK Reason for Visit Breast cancer, left Breast cancer, left Breast cancer, left Encounter for education Breast cancer, left Breast cancer, left Chief Complaint 4 month f/u breast 3 MO - NO LABS 3 MO - NO LABS SCREENING Reason for Visit Breast cancer, left Breast cancer, left Breast cancer, left Chief Complaint 4 month f/u breast POSTMENOPAUSAL Reason for Visit Breast cancer, left Chief Complaint Admit Date BREAST CA October 28, 2024 1 0:45am 6 MO -- LABS October 28, 2024 1 0:52am SCREENING February 18, 2025 10:14 am Reason for Visit Admit Date Breast cancer, left October 28, 2024 1 0:52am Chief Complaint Admit Date SCREENING February 18, 2025 10:14 am REVIEW MAMMO - NO LABS March 18, 2025 9 :29am Reason for Visit Admit Date Breast cancer, left March 18, 2025 9:29 am Additional Source Comments INFORMATION SOURCE (unrecogn ized section and content) DATE CREATED AUTHOR 01/26/2021 [facility] DATE CREATED AUTHOR AUTHOR'S ORGANIZ ATION 08/10/2021 [facility] DATE CREATED AUTHOR AUTHOR'S ORGANIZ ATION 01/17/2025 [facility] DATE CREATED AUTHOR AUTHOR'S ORGANIZ ATION 03/27/2025 [facility] Goals (unrecognized section and content) Goals may be documented in a n alternate sectionGoals may be documented in an alternate sectionGoals may be documented in an alternate sectionGoals may be documented in an alternate sectionGoals may be documented in an alternate sectionGoals may be documented in an alternate section Care Teams (unrecognized sec tion and content) Team Status: Active Member Role Status Dates Greta HUSSEIN PA-C Primary Care Provider Active Team Status: Inactive Member Role Status Dates Greta HUSSEIN PA-C Primary Care Provider Active Start: February 18, 2025 End: February 18, 2025 Dr. Andreas Miller DO Attending Provider Active Start: February 18, 2025 End: February 18, 2025 Dr. nAdreas Miller DO Referring Provider Active Start: February 18, 2025 End: February 18, 2025 Team Status: Inactive Member Role Status Dates Greta HUSSEIN PA-C Primary Care Provider Active Start: March 18, 2025 End: March 18, 2025 JOVITA Sanchez-C Referring Provider Active Start: March 18, 2025 End: March 18, 2025 Lali Real NP, NP-C Attending Provider Active Start: March 18, 2025 End: March 18, 2025 Team Status: Active Member Role Status Dates AVELINO SanchezC Primary Care Provider Active Start: October 28, 2024 Dr. Bebeto Feng MD Attending Provider Active S tart: October 28, 2024 Dr. Bebeto Feng MD Referring Provider Active S tart: October 28, 2024 Team Status: Inactive Member Role Status Dates Greta Marcos PA, PA-C Primary Care Provider Active Start: October 28, 2024 End: October 28, 2024 Greta Marcos PA, PA-C Referring Provider Active Start: October 28, 2024 End: October 28, 2024 Dr. Abdoul Juan MD Attending Provider Active Start: October 28, 2024 End: October 28, 2024 Team Status: Inactive Member Role Status Dates Greta Marcos PA, PA-C Primary Care Provider, Referri ng Provider Active Dr. Abdoul Juan MD Attending Provider Active Team Status: Inactive Member Role Status Dates Greta [place] PA, PA-C Primary Care Provider Active Dr. Andreas Miller DO Attending Provider Active Team Status: Inactive Member Role Status Dates Greta [place] PA, PA-C Primary Care Provider, Referri ng Provider Active Lali Real GARNETTER, GARNETTER-C Attending Provider Active Team Status: Inactive Member Role Status Dates Greta [place] PA, PA-C Primary Care Provider Active Dr. Andreas Miller DO Attending Provider, Referring P wm Active Team Status: Inactive Member Role Status Dates Greta [place] PA, PA-C Primary Care Provider Active Lali Real NP, GARNETTER-C Attending Provider, Referring Provider Active FOR RECORDS PERTAINING TO PATIENTS WHO ARE OR HAVE BEEN ENROLLED IN A CHEMICAL DEPENDENCY/SUBSTANCEABUSE PROGRAM, SOME INFORMATION MAY BE OMITTED. This clinical summary was aggregated from multiple sources. Caution should be exercised in using it in the provision of clinical care. This summary normalizes information from multiple sources, and as a consequence, information in this document may materially change the coding, format and clinical context of patient data. In addition, data may be omitted in some cases. CLINICAL DECISIONS SHOULD BE BASED ON THE PRIMARY CLINICAL RECORDS. [facility] [employer] provides no warranty or guarantee of the accuracy or completeness of information in this document.
== END | disposition home or self-care (01) ==
LOC: NM 09:22
PROVIDERS: PCP Family Medicine; Referring Provider Nurse Practitioner Family; Visit Provider Nurse Practitioner Family
DX: M25.551 Pain in right hip (principal); C50.412 Malignant neoplasm of upper-outer quadrant of left female breast; M25.552 Pain in left hip; Z17.0 Estrogen receptor positive status [ER+]
CPT/HCPCS: 78306; A9503

== ENCOUNTER → 2025-05-25 | Outpatient (CLI) | payer OTHER, SELFPAY ==
[2025-05-28 16:08] LABS: HPV APTIMA, High Risk Negative (Negative)
== END | disposition home or self-care (01) ==
LOC: LABSPEC 15:21
PROVIDERS: PCP Family Medicine; Referring Provider Obstetrics & Gynecology; Visit Provider Obstetrics & Gynecology
DX: Z12.4 Encounter for screening for malignant neoplasm of cervix (principal)
CPT/HCPCS: 87624; 88175; G0145